=== PATIENT | female | born 1985 | race Caucasian/White ===

== ENCOUNTER 2016-09-16 13:43 | Emergency (ER) | payer BC | END 2016-09-16 16:58 | disposition left against medical advice (07) | LOC: UCCORT 13:43 | DX: Z53.21 Procedure and treatment not carried out due to patient leaving prior to being seen by health care provider (principal) ==

== ENCOUNTER 2016-09-16 16:40 | Emergency (ER) | payer BC ==
[2016-09-16 16:57] VITALS: BP 116/81
--- NOTE | 2016-09-16 17:25 | UC ---
Throat Pain/Nasal Bj HPI - HPI Summary HPI Summary: complaint of nasal congestion and cough that started 2.5 weeks ago for the past week increasing pain behind her eyes constant headaches today pressure in her forehead ears feel full cough with purulent sputum denies fever and chills taking nasonex using albuterol 1-2x week - History of Current Complaint Chief Complaint: UCRespiratory Stated Complaint: DIZZY,SINUS PAIN Time Seen by Provider: 09/16/16 17:14 Hx Obtained From: Patient Hx Last Menstrual Period: 1 WEEK AGO - Allergies/Home Medications Allergies/Adverse Reactions: Allergies Allergy/AdvReac Type Severity Reaction Status Date / Time Amoxicillin Allergy Severe Anaphylatic Verified 09/16/16 16:57 Shock Ipratropium [From Combivent] Allergy Severe Difficulty Verified 09/16/16 16:57 Breathing/Wheezing Lecithin [From Combivent] Allergy Severe Difficulty Verified 09/16/16 16:57 Breathing/Wheezing Lorazepam [From Ativan] Allergy Severe Agitation Verified 09/16/16 16:57 Vancomycin Allergy Severe Anaphylatic Verified 09/16/16 16:57 Shock Ondansetron [From Zofran] Allergy Intermediate Blurred Verified 09/16/16 16:57 Vision Cromolyn Allergy Anaphylatic Verified 09/16/16 16:57 Shock Home Medications: Home Medications Acetaminophen 500 mg PO PRN 09/16/16 [History] Ascorbic Acid TAB* [Vitamin C TAB*] 1,000 mg PO DAILY 09/16/16 [History Confirmed 09/16/16] Multiple Vitamins W/ Minerals [Multivitamin Adults] 1 tab PO 09/16/16 [History] Vitamin A [Vitamin A 7500 Unit Fish] 09/16/16 [History] PMH/Surg Hx/FS Hx/Imm Hx Previously Healthy: Yes Endocrine History Of: Denies: Diabetes, Thyroid Disease, Hyperthyroidism, Hypothyroidism, Dyslipidemia Cardiovascular History Of: Denies: Cardiac Disorders, Hypertension, Pacemaker/ICD, Myocardial Infarction , Congestive Heart Failure, Atrial Fibrillation, Deep Vein Thrombosis, Bleeding Disorders Respiratory History Of: Reports: Asthma Denies: COPD, Bronchitis, Pneumonia, Pulmonary Embolism GI/ History Of: Reports: Gastroesophageal Reflux Denies: Ulcer, Gastrointestinal Bleed, Gall Bladder Disease, Kidney Stones, Diverticulitis, Renal Disease, Urosepsis Neurological History Of: Reports: Migraine Denies: TIA, CVA, Dementia, Seizures Psychological History Of: Denies: Anxiety, Depression, Bipolar Disorder, Schizophrenia - "optical and regular kind.", Post Traumatic Stress Disorder Cancer History Of: Denies: Lung Cancer, Colorectal Cancer, Breast Cancer, Prostate Cancer, Cervical Cancer Other History Of: Negative For: HIV, Hepatitis B, Hepatitis C, Anticoagulant Therapy - Surgical History Surgical History: Yes Surgery Procedure, Year, and Place: BACK BIOPSY (SCHAEFFER'S SARCOMA), BONE MARROW CAP BILAT HIPS, LORRI CATH placement and removal; colonoscopy - Family History Known Family History: Positive: None, Cardiac Disease Negative: Hypertension, Diabetes - Social History Alcohol Use: Occasionally Substance Use Type: None Smoking Status (MU): Never Smoked Tobacco Have You Smoked in the Last Year: No - Immunization History Most Recent Influenza Vaccination: 05/19/2014 Most Recent Tetanus Shot: UNSURE Review of Systems Constitutional: Negative Skin: Negative Eyes: Negative ENT: Nasal Discharge Respiratory: Cough Cardiovascular: Negative Gastrointestinal: Negative Genitourinary: Negative Motor: Negative Neurovascular: Negative Musculoskeletal: Negative Neurological: Negative Psychological: Negative All Other Systems Reviewed And Are Negative: Yes Physical Exam Triage Information Reviewed: Yes Appearance: No Pain Distress, Well-Nourished, Obese Vital Signs: Initial Vital Signs Temp 99.1 F 09/16/16 16:53 Pulse 108 09/16/16 16:53 Resp 16 09/16/16 16:53 BP 116/81 09/16/16 16:53 Pulse Ox 100 09/16/16 16:53 Vital Signs Reviewed: Yes Eyes: Positive: Conjunctiva Clear ENT: Positive: Pharyngeal erythema, Nasal congestion, Nasal drainage, TM bulging , Other: - frontal and sinus tenderness. Negative: TM red Neck: Positive: No Lymphadenopathy Respiratory: Positive: Lungs clear, Normal breath sounds, No respiratory distress Cardiovascular: Positive: No Murmur, Pulses Normal, Tachycardia Abdomen Description: Positive: Nontender, Soft Bowel Sounds: Positive: Present Musculoskeletal: Positive: No Edema Neurological: Positive: Alert Psychological Exam: Normal Skin Exam: Normal Throat Pain/Nasal Course/Dx - Course Course Of Treatment: exam completed. refuses doxycycline and requesting clindanycin- will not rx for clindamyucin d/t recent use in the last 3 months. will rx levaquin discussed black box warning with pt - Differential Dx/Diagnosis Differential Diagnosis/HQI/PQRI: Sinusitis, URI Provider Diagnoses: sinusitis Discharge - Discharge Plan Condition: Stable Disposition: HOME Prescriptions: Levofloxacin TAB* [Levaquin TAB*] 750 mg PO DAILY #5 tab Patient Education Materials: Sinusitis (ED) Forms: *Work Release Referrals: Layton Colbert MD [Primary Care Provider] - Additional Instructions: Start antibiotic as directed Increase fluids and rest Take acetaminophen or ibuprofen for fever or pain Please review your discharge instructions. If your symptoms do not improve please call your primary care provider or return to urgent care
== END 2016-09-16 18:12 | disposition home or self-care (01) ==
LOC: UCEAST 16:40
DX: J32.9 Chronic sinusitis, unspecified (principal); Z88.1 Allergy status to other antibiotic agents; Z88.0 Allergy status to penicillin; Z88.8 Allergy status to other drugs, medicaments and biological substances
CPT/HCPCS: 99212; G0463

== ENCOUNTER 2016-09-19 09:09 | Emergency (ER) | payer BC, OTHER ==
[2016-09-19] MEDS ORDERED: Cyclobenzaprine TAB* 10 MG PO ONE (10:00)
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
[2016-09-19 12:33] VITALS: BP 122/79
== END 2016-09-19 12:30 | disposition home or self-care (01) ==
LOC: ED 09:09
DX: M54.2 Cervicalgia (principal); M25.512 Pain in left shoulder; M54.6 Pain in thoracic spine; M25.562 Pain in left knee; V48.5XXA Car driver injured in noncollision transport accident in traffic accident, initial encounter; Y92.410 Unspecified street and highway as the place of occurrence of the external cause; Z88.0 Allergy status to penicillin
CPT/HCPCS: 72040; 72070; 99282; A9270-GY

== ENCOUNTER 2016-10-13 09:23 | Emergency (ER) | payer BC, OTHER ==
[2016-10-13 10:00] VITALS: BP 111/76
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
== END 2016-10-13 10:56 | disposition home or self-care (01) ==
LOC: UCEAST 09:23
DX: J20.9 Acute bronchitis, unspecified (principal); Z88.1 Allergy status to other antibiotic agents; Z88.8 Allergy status to other drugs, medicaments and biological substances
CPT/HCPCS: 99212; G0463

== ENCOUNTER 2016-12-01 07:58 | Emergency (ER) | payer BC ==
[2016-12-01 08:15] VITALS: BP 138/98
--- NOTE | 2016-12-01 09:04 | RAD ---
Indication: LEFT knee and lower leg pain post recent falls. Pain at the anterior proximal tibia and fibula and lateral patellar region. Pain with weightbearing. Comparison: September 19, 2016 radiographs. Technique: AP and lateral views of the tibia and fibula. AP, tunnel, lateral, and sunrise views of the knee. Report: Negative for fracture or malalignment at the knee or lower leg. Preserved knee joint spaces. Negative for knee joint effusion. Nonspecific soft tissue swelling at the distal lower leg and ankle. No suspicious osseous lesions to raise concern for bone metastasis. IMPRESSION: 1. Negative for fracture. 2. Negative for knee joint effusion. 3. Nonspecific distal lower leg and ankle soft tissue swelling for which clinical correlation is suggested. 4. No suspicious osseous lesions to raise concern for bone metastasis.
--- NOTE | 2016-12-01 09:51 | UC ---
Fredy Mccormick Billy, scribed for Chon Dotson MD on 12/01/16 at 0910 . Lower Extremity/Ankle HPI - HPI Summary HPI Summary: In Room Note: Patient is a 31 year-old female coming to [facility] [place] for evaluation of pain and swelling to the left knee. She reports an ache that is worse with prolonged periods of time standing. She has had numerous falls in the last three months, with the most recent being 5 days ago, when she fell onto the asphalt on both knees. She denies any pain in the ankle or foot. 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 She also has had sinus congestion, for which her PCP has prescribed her clindamycin. MD Note: Vitals stable. BP 138/98. Pulse O2 100% on room air. Nurse's Note: pt slipped on ice about a month ago. pt fell on concretea while later, fell again, chased after her dog and fell. pt was kneeling 2 days ago and and had a very sharp pain. All of these injuries have been to lt leg. pt states that her lt foot does not feel right and is tingling. pt has a hx of CA and and is concerned that the CA is back.l pt is very upset and crying. - History of Current Complaint Chief Complaint: UCLowerExtremity Stated Complaint: FELL-LEG INJURY Time Seen by Provider: 12/01/16 08:21 Hx Obtained From: Patient Hx Last Menstrual Period: 11/30/16 Onset/Duration: Sudden Onset, Lasting Days, Still Present Severity Initially: Moderate Severity Currently: Moderate Pain Intensity: 5 Pain Scale Used: 0-10 Numeric Aggravating Factor(s): Standing Alleviating Factor(s): Rest Able to Bear Weight: Yes - Allergies/Home Medications Allergies/Adverse Reactions: Allergies Allergy/AdvReac Type Severity Reaction Status Date / Time Amoxicillin Allergy Severe Anaphylatic Verified 09/16/16 16:57 Shock Ipratropium [From Combivent] Allergy Severe Difficulty Verified 09/19/16 09:26 Breathing/Wheezing Lecithin [From Combivent] Allergy Severe Difficulty Verified 09/19/16 09:26 Breathing/Wheezing Lorazepam [From Ativan] Allergy Severe Agitation Verified 09/19/16 09:26 Vancomycin Allergy Severe Anaphylatic Verified 09/19/16 09:26 Shock Ondansetron [From Zofran] Allergy Intermediate Blurred Verified 09/16/16 16:57 Vision Cinnamon Allergy Unknown Verified 09/19/16 09:27 Reaction Details Cromolyn Allergy Anaphylatic Verified 09/19/16 09:26 Shock PMH/Surg Hx/FS Hx/Imm Hx Endocrine History Of: Denies: Diabetes, Thyroid Disease, Hyperthyroidism, Hypothyroidism, Dyslipidemia Cardiovascular History Of: Denies: Cardiac Disorders, Hypertension, Pacemaker/ICD, Myocardial Infarction , Congestive Heart Failure, Atrial Fibrillation, Deep Vein Thrombosis, Bleeding Disorders Respiratory History Of: Reports: Asthma Denies: COPD, Bronchitis, Pneumonia, Pulmonary Embolism GI/ History Of: Reports: Gastroesophageal Reflux Denies: Ulcer, Gastrointestinal Bleed, Gall Bladder Disease, Kidney Stones, Diverticulitis, Renal Disease, Urosepsis Neurological History Of: Reports: Migraine Denies: TIA, CVA, Dementia, Seizures Psychological History Of: Denies: Anxiety, Depression, Bipolar Disorder, Schizophrenia - "optical and regular kind.", Post Traumatic Stress Disorder Cancer History Of: Denies: Lung Cancer, Colorectal Cancer, Breast Cancer, Prostate Cancer, Cervical Cancer Other History Of: Negative For: HIV, Hepatitis B, Hepatitis C, Anticoagulant Therapy - Surgical History Surgical History: Yes Surgery Procedure, Year, and Place: BACK BIOPSY (SCHAEFFER'S SARCOMA), BONE MARROW CAP BILAT HIPS, LORRI CATH placement and removal; colonoscopy - Family History Known Family History: Positive: Cardiac Disease, Other - CA. CVA. Negative: Hypertension, Diabetes - Social History Alcohol Use: Occasionally Substance Use Type: None Smoking Status (MU): Never Smoked Tobacco Have You Smoked in the Last Year: No - Immunization History Most Recent Influenza Vaccination: 05/19/2014 Most Recent Tetanus Shot: UNSURE Review of Systems Constitutional: Negative Skin: Negative Eyes: Negative ENT: Other - SINUS CONGESTION FOR WHICH SHE IS CURRENTLY TAKING CLINDAMYCIN. Respiratory: Negative Cardiovascular: Negative Gastrointestinal: Negative Genitourinary: Negative Motor: Negative Neurovascular: Negative Musculoskeletal: Arthralgia, Edema Neurological: Negative Psychological: Negative All Other Systems Reviewed And Are Negative: Yes Physical Exam Triage Information Reviewed: Yes Appearance: Well-Appearing, No Pain Distress, Well-Nourished Vital Signs: Initial Vital Signs Temp 99.0 F 12/01/16 08:08 Pulse 118 12/01/16 08:08 Resp 22 12/01/16 08:08 BP 138/98 12/01/16 08:08 Pulse Ox 100 12/01/16 08:08 Vital Signs Reviewed: Yes Eyes: Positive: Conjunctiva Clear ENT: Positive: Hearing grossly normal, Pharynx normal, TMs normal, Other: - LEFT MAXILLARY SINUS DISCOMFORT.. Negative: Muffled/hoarse voice Neck: Positive: Supple, No Lymphadenopathy Respiratory: Positive: Chest non-tender, Lungs clear, Normal breath sounds, No respiratory distress Cardiovascular: Positive: RRR, No Murmur Abdomen Description: Positive: Nontender, No Organomegaly, Soft Bowel Sounds: Positive: Present Musculoskeletal Exam: Other - MILD SWELLING ON THE LATERAL ASPECT DISTAL TO THE PATELLA ON THE LEFT KNEE. THERE ARE NO EVIDENT ABRASION, DOMINGUEZ'S CYSTS, OR SWELLING POSTERIORLY. NEGATIVE ANTERIOR DRAWER SIGN. NEGATIVE MEDIAL OR LATERAL INSTABILITY. THERE IS MILD PAIN OVER THE JOINT LINE MEDIAL AND LATERALLY. THERE IS TENDERNESS OVER THE AREA OF THE INSERTION OF THE QUADRICEPS TENDON. Musculoskeletal: Positive: Strength Intact Neurological: Positive: Alert Psychological: Positive: Age Appropriate Behavior Skin: Negative: rashes Diagnostics - Radiology Lower Leg Xray Xray Interpretation: No Acute Changes Radiology Interpretation Completed By: Radiologist Knee Xray Xray Interpretation: No Acute Changes Radiology Interpretation Completed By: Radiologist Lower Extremity Course/Dx - Course Course Of Treatment: Medications have been included in the original chart and reviewed. Patient is Urgent/Emergent. BP elevated due to current condition w/o HTN in PMH. This is a 31 year-old female coming to the [facility] [place] for evaluation of LLE pain and swelling. She specifically had some anxiety and concerns about her previous cancer diagnosis. The x-ray imaging of her lower extremity was negative for any acute findings. I discussed the patient's condition and her anxiety about her previous cancer diagnosis was now relieved. - Differential Dx/Diagnosis Differential Diagnosis/HQI/PQRI: Other - FRACTURE vs SPRAIN vs CONTUSION Provider Diagnoses: Contusion of the left anterior tibia. Discharge - Discharge Plan Condition: Stable Disposition: HOME Patient Education Materials: Contusion in Adults (ED), Meniscus Tear (ED) Forms: *Work Release Referrals: Layton Colbert MD [Primary Care Provider] - Additional Instructions: Thank you for helping us improve patient care by filling out the [employer] Survey. WE DISCUSSED: Contusion of your left lower leg You have bruised the front part of your lower leg near your kneecap. You are tender over the joint line. I have given you information about a meniscus tear. I don't think you have this but you should follow up for continued pain in 2 weeks. Use lloyd wrap; warm moist heat in the morning; ice after work or during the day for pain. Call with any questions or concerns. The documentation as recorded by the Fredy davis Billy accurately reflects the service I personally performed and the decisions made by me, Chon Dotson MD.
== END 2016-12-01 10:03 | disposition home or self-care (01) ==
LOC: UCEAST 07:58
DX: S80.12XA Contusion of left lower leg, initial encounter (principal); W19.XXXA Unspecified fall, initial encounter; Z91.81 History of falling; Y93.9 Activity, unspecified; Y92.9 Unspecified place or not applicable; M25.562 Pain in left knee; J45.909 Unspecified asthma, uncomplicated; K21.9 Gastro-esophageal reflux disease without esophagitis; G43.909 Migraine, unspecified, not intractable, without status migrainosus; Z88.1 Allergy status to other antibiotic agents
CPT/HCPCS: 99211; G0463

== ENCOUNTER 2016-12-19 12:40 | Emergency (ER) | payer BC ==
[2016-12-19 13:14] VITALS: BP 119/72
--- NOTE | 2016-12-19 16:32 | UC ---
Throat Pain/Nasal Bj HPI - HPI Summary HPI Summary: PATIENT PRESENTS TO WITH CC OF SINUS PRESSURE, PAIN AND FULLNESS OVER MAXILLARY AND FRONTAL SINUS FOR 1 WEEK WHICH HAS BEEN PROGRESSIVELY GOTTEN WORSE. SHE STATES SHE GETS SINUS INFECTIONS FREQUENTLY AND THIS FEELS SIMILAR. DENIES EAR PAIN, BUT ENDORSES "POPPING" SENSATION OF THE EARS BILATERALLY. DENIES THROAT OR EYE DISCOMFORT. SHE TAKES AN ANTIHISTAMINE DAILY. SHE HAS BEEN SEEN BY DR. OLIVAREZ, BUT IS SEEKING A SECOND OPINION NEXT WEEK FOR RECURRENT SINUS INFECTIONS. SHE DENIES NECK PAIN. ENDORSES POST NASAL DRIP AND SLIGHT COUGH AND FATIGUE. SHE IS WORKING MORE THAN USUAL WHICH NORMALLY WILL CAUSE HER TO GET THESE INFECTIONS. SHE TAKES VITAMIN C FOR PREVENTATIVE MEASURES. - History of Current Complaint Chief Complaint: UCRespiratory Stated Complaint: SINUS COMPLAINT Time Seen by Provider: 12/19/16 13:10 Hx Obtained From: Patient Hx Last Menstrual Period: 2 weeks ago ?: No Onset/Duration: Gradual Onset Severity: Moderate Pain Intensity: 4 Pain Scale Used: 0-10 Numeric Associated Signs & Symptoms: Positive: Sinus Discomfort, Nasal Discharge - Epiglottits Risk Factors Epiglottis Risk Factors: Negative - Allergies/Home Medications Allergies/Adverse Reactions: Allergies Allergy/AdvReac Type Severity Reaction Status Date / Time Amoxicillin Allergy Severe Anaphylatic Verified 09/16/16 16:57 Shock Ipratropium [From Combivent] Allergy Severe Difficulty Verified 09/19/16 09:26 Breathing/Wheezing Lecithin [From Combivent] Allergy Severe Difficulty Verified 09/19/16 09:26 Breathing/Wheezing Lorazepam [From Ativan] Allergy Severe Agitation Verified 09/19/16 09:26 Vancomycin Allergy Severe Anaphylatic Verified 09/19/16 09:26 Shock Ondansetron [From Zofran] Allergy Intermediate Blurred Verified 09/16/16 16:57 Vision Cinnamon Allergy Unknown Verified 09/19/16 09:27 Reaction Details Cromolyn Allergy Anaphylatic Verified 09/19/16 09:26 Shock PMH/Surg Hx/FS Hx/Imm Hx Previously Healthy: Yes Endocrine History Of: Denies: Diabetes, Thyroid Disease, Hyperthyroidism, Hypothyroidism, Dyslipidemia Cardiovascular History Of: Denies: Cardiac Disorders, Hypertension, Pacemaker/ICD, Myocardial Infarction , Congestive Heart Failure, Atrial Fibrillation, Deep Vein Thrombosis, Bleeding Disorders Respiratory History Of: Reports: Asthma Denies: COPD, Bronchitis, Pneumonia, Pulmonary Embolism GI/ History Of: Reports: Gastroesophageal Reflux Denies: Ulcer, Gastrointestinal Bleed, Gall Bladder Disease, Kidney Stones, Diverticulitis, Renal Disease, Urosepsis Neurological History Of: Reports: Migraine Denies: TIA, CVA, Dementia, Seizures Psychological History Of: Denies: Anxiety, Depression, Bipolar Disorder, Schizophrenia - "optical and regular kind.", Post Traumatic Stress Disorder Cancer History Of: Denies: Lung Cancer, Colorectal Cancer, Breast Cancer, Prostate Cancer, Cervical Cancer Other History Of: Negative For: HIV, Hepatitis B, Hepatitis C, Anticoagulant Therapy - Surgical History Surgical History: Yes Surgery Procedure, Year, and Place: BACK BIOPSY (SCHAEFFER'S SARCOMA), BONE MARROW CAP BILAT HIPS, LORRI CATH placement and removal; colonoscopy - Family History Known Family History: Positive: None, Cardiac Disease, Other - CA. CVA. Negative: Hypertension, Diabetes - Social History Occupation: Employed Full-time Lives: Alone Alcohol Use: Occasionally Substance Use Type: None Smoking Status (MU): Never Smoked Tobacco Have You Smoked in the Last Year: No - Immunization History Most Recent Influenza Vaccination: 05/19/2014 Most Recent Tetanus Shot: UNSURE Review of Systems Constitutional: Fever - LOW GRADE PER PATIENT Eyes: Negative ENT: Nasal Discharge, Other - NASAL PRESSURE AND PAIN OVER MAXILLARY AND FRONTAL SINUS Genitourinary: Negative Motor: Negative Neurovascular: Negative Neurological: Negative Psychological: Negative All Other Systems Reviewed And Are Negative: Yes Physical Exam Triage Information Reviewed: Yes Appearance: Well-Appearing, Well-Nourished Vital Signs: Initial Vital Signs Temp 97.4 F 12/19/16 13:10 Pulse 88 12/19/16 13:10 Resp 18 12/19/16 13:10 BP 119/72 12/19/16 13:10 Pulse Ox 99 12/19/16 13:10 Vital Signs Reviewed: Yes Eye Exam: Normal Eyes: Positive: Conjunctiva Clear ENT: Positive: Nasal congestion, Nasal drainage Dental Exam: Normal Neck exam: Normal Neck: Positive: Supple, No Lymphadenopathy Respiratory Exam: Normal Respiratory: Positive: Chest non-tender Cardiovascular Exam: Normal Cardiovascular: Positive: RRR Musculoskeletal Exam: Normal Musculoskeletal: Positive: Strength Intact Neurological Exam: Normal Neurological: Positive: Alert Psychological: Positive: Normal Response To Family, Age Appropriate Behavior Skin Exam: Normal Throat Pain/Nasal Course/Dx - Course Course Of Treatment: PATIENT EDUCATED ON ANTIBIOTIC USE AND OVERUSE. SHE IS ENCOURAGED TO SEEK A SECOND OPINION FOR ENT OR RETURN TO DR. OLIVAREZ FOR FURTHER EVALUATION. SHE IS PRESCRIBED CIPRO STATING ONLY THAT AND A FEW OTHER MEDICATIONS WORK FOR HER AND ALSO STATES 10 DAYS IS MINIMUM FOR EFFECTIVENESS OR SHE WILL NEED TO RETURN. ENCOURAGED AUGMENTIN BUT PATIENT IS ALLERGIC. LAST 2 MEDICATIONS WERE CLINDAMYCIN, SO SHE WOULD LIKE TO HAVE SOMETHING DIFFERENT. SHE IS ENCOURAGED TO USE SALINE SPRAYS, ALLERGY MEDICATIONS, TAKE A PROBIOTIC ON OPPOSITE SCHEDULE OF ANTIBIOTIC AND FOLLOW UP WITH ENT. - Differential Dx/Diagnosis Differential Diagnosis/HQI/PQRI: Sinusitis, URI, Other - SINUS INFLAMMATION, ACUTE RHINOSINUSITIS Provider Diagnoses: SINUSITIS Discharge - Discharge Plan Condition: Stable Disposition: HOME Prescriptions: Ciprofloxacin TAB* [Cipro 500 MG TAB*] 500 mg PO DAILY #20 tab Patient Education Materials: Sinusitis (ED) Forms: *Work Release Referrals: Layton Colbert MD [Primary Care Provider] - Additional Instructions: Follow up with ENT Take a probiotic on opposite schedule as antibiotic. Warm compresses twice daily to the sinus area. Continue with nasal sprays and allergy medication.
== END 2016-12-19 13:54 | disposition home or self-care (01) ==
LOC: UCEAST 12:40
DX: J32.9 Chronic sinusitis, unspecified (principal); J45.909 Unspecified asthma, uncomplicated; K21.9 Gastro-esophageal reflux disease without esophagitis; G43.909 Migraine, unspecified, not intractable, without status migrainosus; Z88.4 Allergy status to anesthetic agent; Z88.0 Allergy status to penicillin; Z88.8 Allergy status to other drugs, medicaments and biological substances
CPT/HCPCS: 99212; G0463

== ENCOUNTER 2017-01-28 09:27 | Emergency (ER) | payer BC ==
[2017-01-28 10:01] VITALS: BP 105/62
--- NOTE | 2017-01-28 10:47 | UC ---
Throat Pain/Nasal Bj HPI - HPI Summary HPI Summary: Pt presents through amb triage with report of right sided sinus congestion, pressure, and pain. Pt states has fatigue. No fever, chills, rash. No cp, sob, abd pain. No nausea, vomiting. Pt states has been evaluated by ENT. PT states she is scheduled to see an cloth tester quality on Monday. PT states take Nasonex daily as well as Zytec. Pt states took Afrin x 3 days with little improvement. Pt states last abx 2 months ago. Pt states right side fullness, pressure, ear pain and dental fullness. - History of Current Complaint Chief Complaint: UCRespiratory Stated Complaint: SINUS COMPLAINT Time Seen by Provider: 01/28/17 10:00 Hx Obtained From: Patient Hx Last Menstrual Period: 01/25/17 Onset/Duration: Gradual Onset Severity: Moderate - Allergies/Home Medications Allergies/Adverse Reactions: Allergies Allergy/AdvReac Type Severity Reaction Status Date / Time Amoxicillin Allergy Severe Anaphylatic Verified 09/16/16 16:57 Shock Ipratropium [From Combivent] Allergy Severe Difficulty Verified 09/19/16 09:26 Breathing/Wheezing Lecithin [From Combivent] Allergy Severe Difficulty Verified 09/19/16 09:26 Breathing/Wheezing Lorazepam [From Ativan] Allergy Severe Agitation Verified 09/19/16 09:26 Vancomycin Allergy Severe Anaphylatic Verified 09/19/16 09:26 Shock Ondansetron [From Zofran] Allergy Intermediate Blurred Verified 09/16/16 16:57 Vision Cinnamon Allergy Unknown Verified 09/19/16 09:27 Reaction Details Cromolyn Allergy Anaphylatic Verified 09/19/16 09:26 Shock PMH/Surg Hx/FS Hx/Imm Hx Previously Healthy: Yes Other Cancer History: Schaeffer Sarcoma Other History Of: Negative For: HIV, Hepatitis B, Hepatitis C, Anticoagulant Therapy - Surgical History Surgical History: Yes Surgery Procedure, Year, and Place: BACK BIOPSY (SCHAEFFER'S SARCOMA), BONE MARROW CAP BILAT HIPS, LORRI CATH placement and removal; colonoscopy - Family History Known Family History: Positive: None, Cardiac Disease, Other - CA. CVA. 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 Alcohol Use: Occasionally Substance Use Type: None Smoking Status (MU): Never Smoked Tobacco Have You Smoked in the Last Year: No - Immunization History Most Recent Influenza Vaccination: 05/19/2014 Most Recent Tetanus Shot: UNSURE Review of Systems Constitutional: Fatigue ENT: Nasal Discharge, Sinus Congestion, Sinus Pain/Tenderness Respiratory: Negative Cardiovascular: Negative Gastrointestinal: Negative Genitourinary: Negative Motor: Negative Neurovascular: Negative Musculoskeletal: Negative Neurological: Negative Psychological: Negative All Other Systems Reviewed And Are Negative: Yes Physical Exam Triage Information Reviewed: Yes Appearance: Well-Appearing, No Pain Distress - tired appearing, Well-Nourished Vital Signs: Initial Vital Signs Temp 97.6 F 01/28/17 09:56 Pulse 85 01/28/17 09:56 Resp 18 01/28/17 09:56 BP 105/62 01/28/17 09:56 Pulse Ox 100 01/28/17 09:56 Vital Signs Reviewed: Yes Eye Exam: Normal Eyes: Positive: Conjunctiva Clear, Conjunctiva Inflamed ENT Exam: Normal ENT: Positive: Normal ENT inspection, Pharynx normal, Nasal congestion - turbinates inflammed and boggy + PND uvula midline No erythema, no exudate, TMs normal Neck exam: Normal Neck: Positive: Supple, Nontender, No Lymphadenopathy Respiratory Exam: Normal Respiratory: Positive: Chest non-tender, Lungs clear, Normal breath sounds, No respiratory distress Cardiovascular Exam: Normal Cardiovascular: Positive: RRR, No Murmur, Pulses Normal Abdominal Exam: Normal Abdomen Description: Positive: Nontender, No Organomegaly, Soft Musculoskeletal Exam: Normal Musculoskeletal: Positive: Strength Intact Neurological Exam: Normal Neurological: Positive: Alert, Muscle Tone Normal Psychological Exam: Normal Skin Exam: Normal Throat Pain/Nasal Course/Dx - Course Course Of Treatment: PT presents with right sided sinus congestion and pressure. Pt with similar sx and recurrent sinus congestion. Will start Bactrim. continues nasonex/zyrtec. f/u Fri as scheduled. work note - Differential Dx/Diagnosis Provider Diagnoses: sinusitis Discharge - Discharge Plan Condition: Stable Disposition: HOME Prescriptions: Sulfamethox/Trimethoprim DS* [Bactrim DS 800/160 TAB*] 1 tab PO BID #14 tab Patient Education Materials: Sinusitis (ED) Forms: *Work Release Referrals: Layton Colbert MD [Primary Care Provider] - Additional Instructions: - Continue to take Zyrtec and Nasonex as previously prescribed - Take Bactrim as prescribed until gone - Stay well hydrated - drink plenty of non-alcoholic, non-caffinated beverages - After you have been on antibiotics for 2 days, change your toothbrush and your pillowcase. These infections are spread by secretions - do NOT share eating or drinking utensils - clean items you share with other people such as cell phones, computer mouse, TV remote, computer tablets, etc - Keep your appointment as scheduled on Monday with your ground equipment mechanic - Contact your doctor or return with questions or concerns
== END 2017-01-28 10:49 | disposition home or self-care (01) ==
LOC: UCEAST 09:27
DX: J32.9 Chronic sinusitis, unspecified (principal); Z88.1 Allergy status to other antibiotic agents; Z88.8 Allergy status to other drugs, medicaments and biological substances
CPT/HCPCS: 99202; G0463

== ENCOUNTER 2017-03-18 13:16 | Emergency (ER) | payer BC ==
[2017-03-18 13:46] VITALS: BP 126/82
--- NOTE | 2017-04-08 11:32 | UC ---
Sanford Mccormick Angela, scribed for Leisa Ruiz DO on 03/18/17 at 1405 . General HPI - HPI Summary HPI Summary: 31 y/o female presents to [facility] c/o sinus pressure, congestion, and nasal discharge for more than 1 week. She admits to R jaw pain, R ear pain and headaches as well. Pt reports she gets recurrent sinus infections. She notes that she has seen an ENT provider and was referred to an mutuel cashier, with no solution to her symptoms. Pt states doing nasal rinses at night with no relief, and getting fluid in her ears. Pt denies fever, nausea, vomiting, urinary symptoms, rashes, chest pain, SOB. She notes her seasonal allergies don't make her sinus infection any worse, and uses Zyrtec with mild relief of allergies. Pt is currently taking probiotics and cranberry supplements. Last time she took antibiotics was 2 months ago and states what works best for her are Levaquin, Cipro, Clindamycin. - History of Current Complaint Chief Complaint: UCGeneralIllness Stated Complaint: SINUS COMPLAINT Time Seen by Provider: 03/18/17 13:46 Hx Obtained From: Patient Hx Last Menstrual Period: February 2017 Onset/Duration: Gradual Onset, Lasting Weeks, Still Present Timing: Constant Onset Severity: Moderate Current Severity: Moderate Pain Intensity: 5 - From a scale of 0-10, throbbing/ache Associated Signs & Symptoms: Positive: Headache, Other - POSITIVE: R jaw pain, R ear pain, nasal discharge.. Negative: Abdominal Pain, Cough, Fever, Nausea, SOB, Vomiting - Allergy/Home Medications Allergies/Adverse Reactions: Allergies Allergy/AdvReac Type Severity Reaction Status Date / Time Amoxicillin Allergy Severe Anaphylatic Verified 09/16/16 16:57 Shock Ipratropium [From Combivent] Allergy Severe Difficulty Verified 09/19/16 09:26 Breathing/Wheezing Lecithin [From Combivent] Allergy Severe Difficulty Verified 09/19/16 09:26 Breathing/Wheezing Lorazepam [From Ativan] Allergy Severe Agitation Verified 09/19/16 09:26 Vancomycin Allergy Severe Anaphylatic Verified 09/19/16 09:26 Shock Ondansetron [From Zofran] Allergy Intermediate Blurred Verified 09/16/16 16:57 Vision Cinnamon Allergy Unknown Verified 09/19/16 09:27 Reaction Details Cromolyn Allergy Anaphylatic Verified 02/13/17 09:26 Shock PMH/Surg Hx/FS Hx/Imm Hx - Additional Past Medical History Additional PMH: h/o recurrent sinusitis GI/ History: Other - Gastroenteritis, inflammatory colitis, recurrent UTIs Other GI/ History: Gastroenteritis, inflammatory colitis, recurrent UTIs Other History Of: Negative For: HIV, Hepatitis B, Hepatitis C, Anticoagulant Therapy - Surgical History Surgical History: Yes Surgery Procedure, Year, and Place: BACK BIOPSY (SCHAEFFER'S SARCOMA), BONE MARROW CAP BILAT HIPS, LORRI CATH placement and removal; colonoscopy - Family History Known Family History: Positive: Cardiac Disease - Father, Other - [place]. CVA. Negative: Hypertension, Diabetes - Social History Alcohol Use: Occasionally Substance Use Type: None Smoking Status (MU): Never Smoked Tobacco Have You Smoked in the Last Year: No - Immunization History Most Recent Influenza Vaccination: 05/19/2014 Most Recent Tetanus Shot: UNSURE Review of Systems Constitutional: Negative Skin: Negative Eyes: Negative ENT: Nasal Discharge, Sinus Congestion, Sinus Pain/Tenderness, Other - R jaw pain, R ear pain. Respiratory: Negative Cardiovascular: Negative Gastrointestinal: Negative Genitourinary: Negative Neurological: Headache All Other Systems Reviewed And Are Negative: Yes - Comments Additional Review of Systems Comments: NEGATIVE: fever, nausea, vomiting, rashes, urinary symptoms, chest pain, SOB. Physical Exam Triage Information Reviewed: Yes Appearance: Well-Appearing, No Pain Distress, Well-Nourished Vital Signs: Initial Vital Signs Temp 98.7 F 03/18/17 13:41 Pulse 97 03/18/17 13:41 Resp 18 03/18/17 13:41 BP 126/82 03/18/17 13:41 Pulse Ox 97 03/18/17 13:41 Vital Signs Reviewed: Yes Eyes: Positive: Conjunctiva Clear. Negative: Discharge ENT: Positive: Hearing grossly normal, Pharynx normal, TMs normal, Other: - Exquisite maxillary tenderness rt.. Negative: Tonsillar swelling, Tonsillar exudate, Trismus, Muffled/hoarse voice Neck exam: Normal Neck: Positive: Supple Respiratory: Positive: Lungs clear, Normal breath sounds, No respiratory distress, No accessory muscle use Cardiovascular: Positive: RRR, No Murmur Musculoskeletal Exam: Normal Neurological: Positive: Alert, Muscle Tone Normal Psychological Exam: Normal Psychological: Positive: Age Appropriate Behavior Skin Exam: Normal, Other - Warm, Dry, Normal color Course/Dx - Course Course Of Treatment: Htn noted. Elevated bp likely d/t pt current condition - Differential Dx - Multi-Symptom Provider Diagnoses: Sinusitis, elevated bp without dx of htn Discharge - Discharge Plan Condition: Stable Disposition: HOME Prescriptions: Cefdinir [Cefdinir 300 MG CAP] 300 mg PO BID #20 cap Patient Education Materials: Sinusitis (ED) Referrals: Layton Colbert MD [Primary Care Provider] - If Needed () Additional Instructions: TRY USING THE NETTI POT IN THE MORNINGS DISCUSSED. YOU MUST ALWAYS USE CLEAN WATER. REMEMBER, POSTURE IS AN IMPORTANT FACTOR IN SINUS DRAINAGE. MOVE YOUR NECK, BREATHE. CEPHALOSPORINS: An antibiotic of the cephalosporin class has been prescribed. This type of antibiotic covers a wide variety of infections, including those of the skin, lungs, middle ear, and urinary tract. This antibiotic is somewhat similar to the penicillin family. In rare cases , a person who is allergic to penicillin will also be allergic to this medication. If you have had a severe allergic reaction to penicillin, and have not taken this antibiotic since that time, notify your doctor. Antibiotics which cover many germs ("broad spectrum" antibiotics) are more likely to cause diarrhea or "yeast" infections. Women prone to vaginal yeast problems may suffer an attack after taking this antibiotic. In infants, oral thrush (white spots "stuck" on the cheek) or yeast diaper rash may result. See your doctor if these problems occur. Call the doctor at once if you develop hives, itching, shortness of breath , or lightheadedness. DISCUSSED, BECAUSE YOU HAVE A AMOXICILLIN ALLERGY, THERE MAY BE SOME RISK OF ALLERGIC REACTION TO CEFDINIR. IF YOU DEVELOP ANY RASH/HIVES, SWELLING OF YOUR LIPS/TONGUE/THROAT, SHORTNESS OF BREATH/WHEEZING, CHEST PAIN, NAUSEA/VOMITING/ DIARHHEA/ABDOMINAL PAIN, DIZZINESS/LIGHTHEADEDNESS, YOU SHOULD RETURN HERE OR GO TO THE ED IMMEDIATELY. ANYTIME YOU TAKE AN ANTIBIOTIC, IT IS IMPORTANT TO REPLENISH THE BODY'S SUPPLY OF "GOOD BACTERIA." YOU CAN GET GOOD BACTERIA FROM HIGH QUALITY CULTURED FOODS SUCH LOCAL YOGURT, SOUR KRAUT, MARY COURT, NATURALLY FERMENTED PICKLES AND PROBIOTIC DRINKS. YOU CAN ALSO GET GOOD BACTERIA FROM A PROBIOTIC SUPPLEMENT. YOU WOULD LIKELY BENEFIT FROM OSTEOPATHIC TREATMENT. WE RECOMMEND THAT YOU FIND AN OSTEOPATHIC PHYSICIAN IN YOUR AREA WHO FOCUSES EXCLUSIVELY ON OSTEOPATHIC MANIPULATIVE MEDICINE WITH EXPERTISE IN MYOFACIAL, LYMPHATIC, VISCERAL AND INTEROSSEOUS WORK The documentation as recorded by the Sanford davis Angela accurately reflects the service I personally performed and the decisions made by me, Leisa Ruiz DO.
== END 2017-03-18 14:45 | disposition home or self-care (01) ==
LOC: UCEAST 13:16
DX: J32.9 Chronic sinusitis, unspecified (principal); R03.0 Elevated blood-pressure reading, without diagnosis of hypertension; R68.84 Jaw pain; H92.01 Otalgia, right ear; Z88.1 Allergy status to other antibiotic agents; Z88.0 Allergy status to penicillin; Z88.8 Allergy status to other drugs, medicaments and biological substances
CPT/HCPCS: 99212; G0463

== ENCOUNTER 2017-05-18 12:36 | Emergency (ER) | payer BC ==
[2017-05-18 13:40] VITALS: BP 132/80
--- NOTE | 2017-05-18 16:01 | UC ---
Throat Pain/Nasal Bj HPI - HPI Summary HPI Summary: TEN DAYS OF SINUS PRESSURE, NASAL DRAINAGE. HISTORY OF CHRONIC SINUS PROBLEMS. - History of Current Complaint Chief Complaint: UCGeneralIllness Stated Complaint: SINUS COMPLAINT Time Seen by Provider: 05/18/17 13:35 Hx Obtained From: Patient Hx Last Menstrual Period: 05/18/17 Onset/Duration: Gradual Onset, Lasting Weeks Severity: Moderate Pain Intensity: 6 Pain Scale Used: 0-10 Numeric Cough: Nonproductive Associated Signs & Symptoms: Positive: Hoarseness, Sinus Discomfort, Nasal Discharge - Epiglottits Risk Factors Epiglottis Risk Factors: Negative - Allergies/Home Medications Allergies/Adverse Reactions: Allergies Allergy/AdvReac Type Severity Reaction Status Date / Time Amoxicillin Allergy Severe Anaphylatic Verified 09/16/16 16:57 Shock Ipratropium [From Combivent] Allergy Severe Difficulty Verified 09/19/16 09:26 Breathing/Wheezing Lecithin [From Combivent] Allergy Severe Difficulty Verified 09/19/16 09:26 Breathing/Wheezing Lorazepam [From Ativan] Allergy Severe Agitation Verified 09/19/16 09:26 Vancomycin Allergy Severe Anaphylatic Verified 09/19/16 09:26 Shock Ondansetron [From Zofran] Allergy Intermediate Blurred Verified 09/16/16 16:57 Vision Cinnamon Allergy Unknown Verified 09/19/16 09:27 Reaction Details Cromolyn Allergy Anaphylatic Verified 09/19/16 09:26 Shock PMH/Surg Hx/FS Hx/Imm Hx Previously Healthy: Yes Other History Of: Negative For: HIV, Hepatitis B, Hepatitis C, Anticoagulant Therapy - Surgical History Surgical History: Yes Surgery Procedure, Year, and Place: BACK BIOPSY (SCHAEFFER'S SARCOMA), BONE MARROW CAP BILAT HIPS, LORRI CATH placement and removal; colonoscopy - Family History Known Family History: Positive: None, Cardiac Disease - Father, Other - [place]. CVA. Negative: Hypertension, Diabetes - Social History Occupation: Employed Full-time Lives: With Family Alcohol Use: Rare Substance Use Type: None Smoking Status (MU): Never Smoked Tobacco Have You Smoked in the Last Year: No - Immunization History Most Recent Influenza Vaccination: 05/19/2014 Most Recent Tetanus Shot: UNSURE Review of Systems Constitutional: Negative Skin: Negative Eyes: Negative ENT: Nasal Discharge, Sinus Congestion, Sinus Pain/Tenderness Respiratory: Negative Cardiovascular: Negative Gastrointestinal: Negative Genitourinary: Negative Motor: Negative Neurovascular: Negative Musculoskeletal: Negative Neurological: Negative Psychological: Negative Is Patient Immunocompromised?: No All Other Systems Reviewed And Are Negative: Yes Physical Exam Triage Information Reviewed: Yes Appearance: No Pain Distress, Well-Nourished, Ill-Appearing - MILDLY Vital Signs: Initial Vital Signs Temp 98.1 F 05/18/17 13:35 Pulse 88 05/18/17 13:35 Resp 16 05/18/17 13:35 BP 132/80 05/18/17 13:35 Pulse Ox 100 05/18/17 13:35 Vital Signs Reviewed: Yes Eye Exam: Normal ENT: Positive: Hearing grossly normal, Nasal congestion, TM bulging, TM dull Dental Exam: Normal Neck exam: Normal Neck: Positive: Supple, Nontender, No Lymphadenopathy Respiratory Exam: Normal Respiratory: Positive: Chest non-tender, Lungs clear, Normal breath sounds, No respiratory distress, No accessory muscle use Cardiovascular Exam: Normal Cardiovascular: Positive: RRR, No Murmur, Pulses Normal, Brisk Capillary Refill Abdominal Exam: Normal Musculoskeletal Exam: Normal Neurological Exam: Normal Psychological Exam: Normal Skin Exam: Normal Throat Pain/Nasal Course/Dx - Differential Dx/Diagnosis Differential Diagnosis/HQI/PQRI: Sinusitis, Tonsillitis, URI Provider Diagnoses: SINUSITIS Discharge - Discharge Plan Condition: Stable Disposition: HOME Prescriptions: DOXYcycline CAP(*) [DOXYcycline 100MG CAP(*)] 100 mg PO BID #20 cap Patient Education Materials: Sinusitis (ED) Forms: *Work Release Referrals: Mp Seymour MD [Medical Doctor] - Layton Colbert MD [Primary Care Provider] -
== END 2017-05-18 14:03 | disposition home or self-care (01) ==
LOC: UCCORT 12:36
DX: J32.9 Chronic sinusitis, unspecified (principal)
CPT/HCPCS: 99212; G0463

== ENCOUNTER 2017-06-25 12:31 | Emergency (ER) | payer BC ==
--- NOTE | 2017-06-25 14:58 | UC ---
Throat Pain/Nasal Bj HPI - HPI Summary HPI Summary: Patient has right sided sinus pressure and swelling, did have a small abcess on the upper right jaw, that was draining a few days ago. no fever, does have an ENT, but cant get in for a few weeks. - History of Current Complaint Stated Complaint: SINUS Time Seen by Provider: 06/25/17 14:39 Hx Obtained From: Patient Hx Last Menstrual Period: 05/18/17 ?: No Onset/Duration: Sudden Onset, Lasting Days Severity: Mild Cough: Nonproductive Associated Signs & Symptoms: Positive: Sinus Discomfort - Allergies/Home Medications Allergies/Adverse Reactions: Allergies Allergy/AdvReac Type Severity Reaction Status Date / Time Amoxicillin Allergy Severe Anaphylatic Verified 06/25/17 14:55 Shock Ipratropium [From Combivent] Allergy Severe Difficulty Verified 06/25/17 14:55 Breathing/Wheezing Lecithin [From Combivent] Allergy Severe Difficulty Verified 06/25/17 14:55 Breathing/Wheezing Lorazepam [From Ativan] Allergy Severe Agitation Verified 06/25/17 14:55 Vancomycin Allergy Severe Anaphylatic Verified 06/25/17 14:55 Shock Ondansetron [From Zofran] Allergy Intermediate Blurred Verified 06/25/17 14:55 Vision Cinnamon Allergy Unknown Verified 06/25/17 14:55 Reaction Details Cromolyn Allergy Anaphylatic Verified 06/25/17 14:55 Shock PMH/Surg Hx/FS Hx/Imm Hx Previously Healthy: Yes Other History Of: Negative For: HIV, Hepatitis B, Hepatitis C, Anticoagulant Therapy - Surgical History Surgical History: Yes Surgery Procedure, Year, and Place: BACK BIOPSY (SCHAEFFER'S SARCOMA), BONE MARROW CAP BILAT HIPS, LORRI CATH placement and removal; colonoscopy - Family History Known Family History: Positive: None, Cardiac Disease - Father, Other - [place]. CVA. Negative: Hypertension, Diabetes - Social History Alcohol Use: Rare Substance Use Type: None Smoking Status (MU): Never Smoked Tobacco Have You Smoked in the Last Year: No - Immunization History Most Recent Influenza Vaccination: 05/19/2014 Most Recent Tetanus Shot: UNSURE Review of Systems Constitutional: Negative Skin: Negative Eyes: Negative ENT: Dental Pain, Sinus Congestion, Sinus Pain/Tenderness Respiratory: Negative, Shortness Of Breath Gastrointestinal: Negative Genitourinary: Negative Motor: Negative Neurovascular: Negative Musculoskeletal: Negative Neurological: Headache Psychological: Negative Is Patient Immunocompromised?: No All Other Systems Reviewed And Are Negative: Yes Physical Exam Triage Information Reviewed: Yes Appearance: Well-Nourished, Ill-Appearing, Pain Distress Vital Signs Reviewed: Yes Eye Exam: Normal ENT: Positive: Pharyngeal erythema, TM bulging - right ear, TM dull, Dental tenderness - right side maxillary, Sinus tenderness Dental Exam: Normal Neck exam: Normal Neck: Positive: Supple, Nontender, Enlarged Nodes @ - submandibular and cervical Respiratory Exam: Normal Respiratory: Positive: Chest non-tender, Lungs clear, Normal breath sounds Cardiovascular Exam: Normal Cardiovascular: Positive: RRR, No Murmur, Pulses Normal Abdominal Exam: Normal Abdomen Description: Positive: Nontender, No Organomegaly, Soft Bowel Sounds: Positive: Present Musculoskeletal Exam: Normal Musculoskeletal: Positive: Strength Intact, ROM Intact, No Edema Neurological Exam: Normal Neurological: Positive: Alert, Muscle Tone Normal Psychological Exam: Normal Skin Exam: Normal Throat Pain/Nasal Course/Dx - Course Course Of Treatment: hx obtained, exam performed ,meds reviewed, treated for sinusitis of the right maxillary sinus - Differential Dx/Diagnosis Differential Diagnosis/HQI/PQRI: Otitis Media, Pharyngitis, Sinusitis, Tonsillitis Provider Diagnoses: right maxillary sinusitis Discharge - Discharge Plan Condition: Stable Disposition: HOME Prescriptions: Clindamycin Cap(NF) [Clindamycin Cap 300 mg Cap(NF)] 300 mg PO TID #30 cap Patient Education Materials: Sinusitis (ED), Warm Compress or Soak (ED) Referrals: Layton Colbert MD [Primary Care Provider] - Additional Instructions: 1. Use the medication as prescribed. 2. Warm compresses and ibuprofen as needed. 3. FOllow up with your ENT in [facility] next week, report to ER if you develop a fever ,or increased facial pain or swelling
[2017-06-25 15:13] VITALS: BP 133/78
== END 2017-06-25 15:20 | disposition home or self-care (01) ==
LOC: UCCORT 12:31
DX: J32.0 Chronic maxillary sinusitis (principal); Z88.1 Allergy status to other antibiotic agents; Z88.8 Allergy status to other drugs, medicaments and biological substances
CPT/HCPCS: 99212; G0463

== ENCOUNTER 2017-08-06 13:27 | Emergency (ER) | payer BC ==
[2017-08-06 16:02] VITALS: BP 128/70
--- NOTE | 2017-08-06 16:26 | ED ---
Throat Pain/Nasal Congestion - HPI Summary HPI Summary: 32 yr old female with the complaint of right and left frontal sinus pressure and right maxillary sinus pressure. Onset 1.5 weeks ago this time. She states she has pressure in the right ear. She has post nasal drip and sinus drainage. She has a history of recurrent sinus infections and is under the care of Dr Bullock at this point. She states the best medicine seems to be clindamycin for her. - History of Current Complaint Chief Complaint: UCGeneralIllness Time Seen by Provider: 08/06/17 16:08 - Allergies/Home Medications Allergies/Adverse Reactions: Allergies Allergy/AdvReac Type Severity Reaction Status Date / Time Amoxicillin Allergy Severe Anaphylatic Verified 08/06/17 16:02 Shock Ipratropium [From Combivent] Allergy Severe Difficulty Verified 08/06/17 16:02 Breathing/Wheezing Lecithin [From Combivent] Allergy Severe Difficulty Verified 08/06/17 16:02 Breathing/Wheezing Lorazepam [From Ativan] Allergy Severe Agitation Verified 08/06/17 16:02 Vancomycin Allergy Severe Anaphylatic Verified 08/06/17 16:02 Shock Ondansetron [From Zofran] Allergy Intermediate Blurred Verified 08/06/17 16:02 Vision Cinnamon Allergy Unknown Verified 08/06/17 16:02 Reaction Details Cromolyn Allergy Anaphylatic Verified 08/06/17 16:02 Shock Home Medications: Home Medications Acetaminophen TAB* [Tylenol TAB*] 975 mg PO Q4H PRN 08/06/17 [History Confirmed 08/06/17] PMH/Surg Hx/FS Hx/Imm Hx Endocrine/Hematology History: Denies: Hx Anticoagulant Therapy, Hx Blood Disorders, Hx Diabetes, Hx Thyroid Disease, Hx Unexplained Bleeding Cardiovascular History: Denies: Hx Congestive Heart Failure, Hx Deep Vein Thrombosis, Hx Hypertension , Hx Myocardial Infarction, Hx Pacemaker/ICD Respiratory History: Reports: Hx Asthma Denies: Hx Chronic Obstructive Pulmonary Disease (COPD), Hx Lung Cancer, Hx Pneumonia, Hx Pulmonary Embolism GI History: Denies: Hx Gall Bladder Disease, Hx Gastrointestinal Bleed, Hx Ulcer, Hx Urosepsis History: Denies: Hx Kidney Stones, Hx Renal Disease Musculoskeletal History: Reports: Other Musculoskeletal History - h/o chemo/ radiation resulting in poor bone quality Sensory History: Reports: Hx Contacts or Glasses Denies: Hx Hearing Aid Opthamlomology History: Reports: Hx Contacts or Glasses Neurological History: Reports: Hx Migraine, Other Neuro Impairments/Disorders - 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, had chemo and radiation Denies: Hx Dementia, Hx Seizures, Hx Transient Ischemic Attacks (TIA) Psychiatric History: Denies: Hx Anxiety, Hx Depression, Hx Panic Disorder, Hx Schizophrenia - "optical and regular kind.", Hx Bipolar Disorder - Cancer History Cancer Type, 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 Hx Chemotherapy: Yes Hx Radiation Therapy: Yes - Surgical History Surgery Procedure, Year, and Place: BACK BIOPSY (SCHAEFFER'S SARCOMA), BONE MARROW CAP BILAT HIPS, LORRI CATH placement and removal; colonoscopy Infectious Disease History: No Infectious Disease History: Reports: Hx Shingles - 2000 Denies: Hx Clostridium Difficile, Hx Hepatitis, Hx Human Immunodeficiency Virus (HIV), Hx of Known/Suspected MRSA, Hx Tuberculosis, Hx Known/Suspected VRE , Hx Known/Suspected VRSA, History Other Infectious Disease, Traveled Outside the [place] in Last 30 Days - Family History Known Family History: Positive: None, Cardiac Disease - Father, Other - [place]. CVA. Negative: Hypertension, Diabetes - Social History Occupation: Employed Full-time Lives: With Family Alcohol Use: Rare Hx Substance Use: No Substance Use Type: Reports: None Hx Tobacco Use: No Smoking Status (MU): Never Smoked Tobacco Have You Smoked in the Last Year: No Review of Systems Constitutional: Negative Positive: Nasal Discharge, Other - sinus pain pressure All Other Systems Reviewed And Are Negative: Yes Physical Exam Triage Information Reviewed: Yes Vital Signs On Initial Exam: Initial Vitals Temp Pulse Resp BP Pulse Ox 98.6 F 104 16 128/70 99 08/06/17 15:57 08/06/17 15:57 08/06/17 15:57 08/06/17 15:57 08/06/17 15:57 Vital Signs Reviewed: Yes Appearance: Positive: Well-Appearing, No Pain Distress Skin: Positive: Warm Head/Face: Positive: Normal Head/Face Inspection Eyes: Positive: EOMI ENT: Positive: Pharynx normal, TMs normal, Sinus tenderness Neck: Positive: Supple, Nontender Respiratory/Lung Sounds: Positive: Clear to Auscultation, Breath Sounds Present Cardiovascular: Positive: RRR. Negative: Murmur Abdomen Description: Positive: Nontender Musculoskeletal: Positive: Strength/ROM Intact Neurological: Positive: Sensory/Motor Intact, Alert, Oriented to Person Place, Time, CN Intact II-III Psychiatric: Positive: Normal - French Coma Scale Best Eye Response: 4 - Spontaneous Best Motor Response: 6 - Obeys Commands Best Verbal Response: 5 - Oriented Diagnostics - Vital Signs Vital Signs Temp Pulse Resp BP Pulse Ox 08/06/17 15:57 98.6 F 104 16 128/70 99 - Laboratory Lab Statement: Any lab studies that have been ordered have been reviewed, and results considered in the medical decision making process. EENT Course/Dx - Course Course Of Treatment: 32 yr old with sinus infection. Rx with clindamycin. Fu with Dr Bullock. - Diagnoses Provider Diagnoses: Sinusitis Discharge - Discharge Plan Condition: Good Disposition: HOME Prescriptions: Clindamycin Cap(NF) [Clindamycin Cap 300 mg Cap(NF)] 300 mg PO Q6H #40 cap Patient Education Materials: Sinusitis (ED) Referrals: Isaiah Bullock MD [Medical Doctor] - No Primary Care Phys,NOPCP [Primary Care Provider] -
== END 2017-08-06 16:26 | disposition home or self-care (01) ==
LOC: UCCORT 13:27
DX: J32.9 Chronic sinusitis, unspecified (principal); Z85.830 Personal history of malignant neoplasm of bone; Z88.8 Allergy status to other drugs, medicaments and biological substances; Z88.1 Allergy status to other antibiotic agents
CPT/HCPCS: 99211; G0463

== ENCOUNTER 2017-09-16 14:57 | Emergency (ER) | payer BC | END 2017-09-16 20:30 | disposition left against medical advice (07) | LOC: UCEAST 14:57 | DX: J02.9 Acute pharyngitis, unspecified (principal); Z53.21 Procedure and treatment not carried out due to patient leaving prior to being seen by health care provider ==

== ENCOUNTER 2017-09-17 08:10 | Emergency (ER) | payer BC ==
[2017-09-17 08:23] VITALS: BP 143/80
--- NOTE | 2017-09-17 09:21 | UC ---
Throat Pain/Nasal Bj HPI - HPI Summary HPI Summary: Sinus pain for over 1 month worse on right also has right ear pain, rx with clindamycin-which usually clears the infection well---doxycycline and Zithromax never help - History of Current Complaint Chief Complaint: UCGeneralIllness Stated Complaint: SINUS COMPLAINT Time Seen by Provider: 09/17/17 09:19 Hx Obtained From: Patient Hx Last Menstrual Period: 2 weeks ago ?: No Onset/Duration: Gradual Onset, Lasting Weeks - 4+, Still Present, Worse Since - past week Severity: Moderate Pain Intensity: 4 Cough: None Associated Signs & Symptoms: Positive: Sinus Discomfort, Nasal Discharge - Allergies/Home Medications Allergies/Adverse Reactions: Allergies Allergy/AdvReac Type Severity Reaction Status Date / Time albuterol [From Combivent] Allergy Severe Difficulty Verified 09/17/17 08:30 Breathing/Wheezing amoxicillin Allergy Severe Anaphylatic Verified 09/17/17 08:30 Shock cromolyn Allergy Severe Anaphylatic Verified 09/17/17 08:30 Shock ipratropium [From Combivent] Allergy Severe Difficulty Verified 09/17/17 08:30 Breathing/Wheezing vancomycin Allergy Severe Anaphylatic Verified 09/17/17 08:30 Shock lorazepam Allergy Intermediate Abdominal Verified 09/17/17 08:30 Pain ondansetron Allergy Intermediate Blurred Verified 09/17/17 08:30 [From Zofran (as Vision hydrochloride)] cinnamon Allergy Unknown Unknown Verified 09/17/17 08:30 Reaction Details PMH/Surg Hx/FS Hx/Imm Hx Previously Healthy: Yes Other History Of: Negative For: HIV, Hepatitis B, Hepatitis C, Anticoagulant Therapy - Surgical History Surgical History: Yes Surgery Procedure, Year, and Place: BACK BIOPSY (SCHAEFFER'S SARCOMA), BONE MARROW CAP BILAT HIPS, LORRI CATH placement and removal; colonoscopy - Family History Known Family History: Positive: None, Cardiac Disease - Father, Other - [place]. CVA. Negative: Hypertension, Diabetes - Social History Occupation: Employed Full-time Lives: With Family Alcohol Use: Rare Substance Use Type: None Smoking Status (MU): Never Smoked Tobacco Have You Smoked in the Last Year: No - Immunization History Most Recent Influenza Vaccination: 05/19/2014 Most Recent Tetanus Shot: UNSURE Review of Systems Constitutional: Chills, Fatigue Skin: Negative Eyes: Negative ENT: Ear Ache, Nasal Discharge, Sinus Congestion, Sinus Pain/Tenderness Respiratory: Negative Cardiovascular: Negative Gastrointestinal: Negative Genitourinary: Negative Motor: Negative Neurovascular: Negative Musculoskeletal: Negative Neurological: Headache Psychological: Negative Is Patient Immunocompromised?: Yes All Other Systems Reviewed And Are Negative: No Physical Exam Triage Information Reviewed: Yes Appearance: Well-Appearing, No Pain Distress, Well-Nourished Vital Signs: Initial Vital Signs Temp 98.1 F 09/17/17 08:19 Pulse 97 09/17/17 08:19 Resp 20 09/17/17 08:19 BP 143/80 09/17/17 08:19 Pulse Ox 99 09/17/17 08:19 Vital Signs Reviewed: Yes Eye Exam: Normal Eyes: Positive: Conjunctiva Clear ENT Exam: Normal ENT: Positive: Normal ENT inspection, Pharynx normal, TMs normal, Sinus tenderness, Uvula midline. Negative: Nasal congestion, Nasal drainage, Tonsillar swelling, Tonsillar exudate, Trismus, Muffled voice, Hoarse voice, Dental tenderness Dental Exam: Normal Neck exam: Normal Neck: Positive: Supple, Nontender, No Lymphadenopathy Respiratory Exam: Normal Respiratory: Positive: Chest non-tender, Lungs clear, Normal breath sounds, No respiratory distress, No accessory muscle use Cardiovascular Exam: Normal Cardiovascular: Positive: RRR, No Murmur, Pulses Normal, Brisk Capillary Refill Musculoskeletal Exam: Normal Musculoskeletal: Positive: Strength Intact, ROM Intact, No Edema Neurological Exam: Normal Neurological: Positive: Alert, Muscle Tone Normal Psychological Exam: Normal Skin Exam: Normal Throat Pain/Nasal Course/Dx - Course Assessment/Plan: continue with nasal sprays and mucinex, levaquin follow with Dr. Bullock - Differential Dx/Diagnosis Provider Diagnoses: Rhinosinusitis, elevated blood pressure with hx of hypertension Discharge - Discharge Plan Condition: Stable Disposition: HOME Prescriptions: Levofloxacin TAB* [Levaquin TAB*] 500 mg PO DAILY #10 tab Patient Education Materials: Antitussive/Expectorant (By mouth), Rhinosinusitis (ED), Hypertension (ED) Referrals: Isaiah Bullock MD [Medical Doctor] - 1 Week
== END 2017-09-17 09:36 | disposition home or self-care (01) ==
LOC: UCEAST 08:10
DX: J32.9 Chronic sinusitis, unspecified (principal); I10 Essential (primary) hypertension
CPT/HCPCS: 99212; G0463

== ENCOUNTER 2017-10-04 14:29 | Emergency (ER) | payer BC ==
[2017-10-04 15:46] VITALS: BP 133/95
--- NOTE | 2017-10-04 16:19 | UC ---
Respiratory Complaint HPI - HPI Summary HPI Summary: PT REPORTS H/O RECURRENT SINUS INFECTIONS MONTHLY FOR YEARS. STATES SHE GETS ANTIBIOTICS ALMOST EVERY TIME. THIS MONTH HAS BEEN ON BOTH CLINDA AND LEVOFLOX AND STATES SX ARE NOT BETTER. STILL HAS RIGHT SIDED SINUES PRESSYRE, ADEN AND EAR PAIN. SOME DIZZINESS THIS MORNING. NO FEVER, NAUSEA, COUGH, ST. - History of Current Complaint Chief Complaint: UCRespiratory Stated Complaint: SINUS Time Seen by Provider: 10/04/17 16:06 Hx Obtained From: Patient Hx Last Menstrual Period: 09/30/17 Onset/Duration: Gradual Onset, Lasting Weeks, Still Present Timing: Constant Severity Initially: Moderate Severity Currently: Moderate Pain Intensity: 3 Pain Scale Used: 0-10 Numeric Aggravating Factors: Nothing Alleviating Factors: Nothing Associated Signs And Symptoms: Positive: Sinus Discomfort. Negative: Dyspnea, Fever, Chills, Pleuritic Chest Pain - Allergies/Home Medications Allergies/Adverse Reactions: Allergies Allergy/AdvReac Type Severity Reaction Status Date / Time amoxicillin Allergy Severe Anaphylatic Verified 09/17/17 08:30 Shock cromolyn Allergy Severe Anaphylatic Verified 09/17/17 08:30 Shock ipratropium [From Combivent] Allergy Severe Difficulty Verified 09/17/17 08:30 Breathing/Wheezing vancomycin Allergy Severe Anaphylatic Verified 09/17/17 08:30 Shock lorazepam Allergy Intermediate Abdominal Verified 09/17/17 08:30 Pain ondansetron Allergy Intermediate Blurred Verified 09/17/17 08:30 [From Zofran (as Vision hydrochloride)] cinnamon Allergy Unknown Unknown Verified 09/17/17 08:30 Reaction Details PMH/Surg Hx/FS Hx/Imm Hx Respiratory History: Asthma Other Cancer History: SCHAEFFER SARCOMA Other History Of: Negative For: HIV, Hepatitis B, Hepatitis C, Anticoagulant Therapy - Surgical History Surgical History: Yes Surgery Procedure, Year, and Place: BACK BIOPSY (SCHAEFFER'S SARCOMA), BONE MARROW CAP BILAT HIPS, LORRI CATH placement and removal; colonoscopy - Family History Known Family History: Positive: Cardiac Disease - Father, Other - [place]. CVA. Negative: Hypertension, Diabetes - Social History Alcohol Use: Rare Substance Use Type: None Smoking Status (MU): Never Smoked Tobacco Have You Smoked in the Last Year: No - Immunization History Most Recent Influenza Vaccination: 05/19/2014 Most Recent Tetanus Shot: UNSURE Review of Systems Constitutional: Negative ENT: Ear Ache, Sinus Congestion, Sinus Pain/Tenderness Respiratory: Negative Cardiovascular: Negative Gastrointestinal: Negative All Other Systems Reviewed And Are Negative: Yes Physical Exam Triage Information Reviewed: Yes Appearance: Well-Appearing, No Pain Distress, Well-Nourished Vital Signs: Initial Vital Signs Temp 99.2 F 10/04/17 15:36 Pulse 91 10/04/17 15:36 Resp 18 10/04/17 15:36 BP 133/95 10/04/17 15:36 Pulse Ox 100 10/04/17 15:36 Vital Signs Reviewed: Yes Eyes: Positive: Conjunctiva Clear ENT: Positive: Hearing grossly normal, Pharynx normal, TMs normal Dental: Positive: Other: - NO CLEAR ABSCESS OR GROSS DENTAL DECAY Neck: Positive: Supple, Nontender, No Lymphadenopathy Respiratory Exam: Normal Cardiovascular Exam: Normal Abdomen Description: Positive: Soft Musculoskeletal: Positive: No Edema Neurological: Positive: Alert Psychological: Positive: Age Appropriate Behavior Skin: Negative: rashes UC Diagnostic Evaluation - Laboratory O2 Sat by Pulse Oximetry: 100 Respiratory Course/Dx - Differential Dx/Diagnosis Provider Diagnoses: SINUSITIS - LOW SUSPICION FOR BACTERIAL INFECTION Discharge - Discharge Plan Condition: Stable Disposition: HOME Patient Education Materials: Sinusitis (ED) Forms: *Work Release Referrals: Isaiah Bullock MD [Medical Doctor] - As Soon As Possible Layton Colbert MD [Primary Care Provider] - If Needed Additional Instructions: YOU NEED TO SEE YOUR ENT FOR FURTHER EVALUATION OF YOUR SYMPTOMS. CALL FOR AN APPT MARCELA. [facility] [place] [address] AND [address] [facility] [phone] [facility] [place] [address] [phone]
== END 2017-10-04 16:26 | disposition home or self-care (01) ==
LOC: UCCORT 14:29
DX: J32.9 Chronic sinusitis, unspecified (principal)
CPT/HCPCS: 99211; G0463

== ENCOUNTER 2017-11-03 13:46 | Emergency (ER) | payer BC ==
[2017-11-03 14:26] VITALS: BP 130/80
--- NOTE | 2017-11-03 15:07 | UC ---
Respiratory Complaint HPI - HPI Summary HPI Summary: Patient c/o sinus pain on right maxilla where she had some dental work weeks ago and right frontal area. States she has these symptoms for the past 3 weeks, along with yellow nasal d/c. She has been using albuterol MDI yesterday morning and continues with zyrtec, melatonin and nasonex. Patient denies fever but states she has been having some loose stools since yesterday and vomited her breakfast yesterday. She has been taking sips of water and is producing concentrated urine. LMD 11/01/17 - History of Current Complaint Chief Complaint: UCGeneralIllness Stated Complaint: SINUS PAIN, PRESSURE Time Seen by Provider: 11/03/17 14:59 Hx Obtained From: Patient Hx Last Menstrual Period: 11-01-17 Onset/Duration: Gradual Onset, Lasting Weeks Timing: Constant Severity Initially: Mild Severity Currently: Moderate Pain Intensity: 4 Alleviating Factors: Bronchodilator Associated Signs And Symptoms: Positive: Nasal Congestion, Sinus Discomfort - Risk Factors Pulmonary Embolism Risk Factors: Negative Cardiac Risk Factors: Negative Pseudomonas Risk Factors: Negative Tuberculosis Risk Factors: Negative - Allergies/Home Medications Allergies/Adverse Reactions: Allergies Allergy/AdvReac Type Severity Reaction Status Date / Time amoxicillin Allergy Severe Anaphylatic Verified 11/03/17 14:18 Shock cromolyn Allergy Severe Anaphylatic Verified 11/03/17 14:18 Shock ipratropium [From Combivent] Allergy Severe Difficulty Verified 11/03/17 14:18 Breathing/Wheezing vancomycin Allergy Severe Anaphylatic Verified 11/03/17 14:18 Shock lorazepam Allergy Intermediate Abdominal Verified 11/03/17 14:18 Pain ondansetron Allergy Intermediate Blurred Verified 11/03/17 14:18 [From Zofran (as Vision hydrochloride)] cinnamon Allergy Unknown Hives Verified 11/03/17 14:18 PMH/Surg Hx/FS Hx/Imm Hx Other History Of: Negative For: HIV, Hepatitis B, Hepatitis C, Anticoagulant Therapy - Surgical History Surgical History: Yes Surgery Procedure, Year, and Place: BACK BIOPSY (SCHAEFFER'S SARCOMA), BONE MARROW CAP BILAT HIPS, LORRI CATH placement and removal; colonoscopy - Family History Known Family History: Positive: None, Cardiac Disease - Father, Other - [place]. CVA. Negative: Hypertension, Diabetes - Social History Alcohol Use: Rare Substance Use Type: None Smoking Status (MU): Never Smoked Tobacco Have You Smoked in the Last Year: No - Immunization History Most Recent Influenza Vaccination: 05/19/2014 Most Recent Tetanus Shot: UNSURE Review of Systems ENT: Nasal Discharge, Sinus Pain/Tenderness Gastrointestinal: Vomiting, Diarrhea All Other Systems Reviewed And Are Negative: Yes Physical Exam Triage Information Reviewed: Yes Appearance: Well-Appearing, No Pain Distress, Obese Vital Signs: Initial Vital Signs Temp 98 F 11/03/17 14:20 Pulse 91 11/03/17 14:20 Resp 18 11/03/17 14:20 BP 130/80 11/03/17 14:20 Pulse Ox 97 11/03/17 14:20 Eyes: Positive: Conjunctiva Clear ENT: Positive: Pharynx normal, TMs normal, Uvula midline, Other - tender upon palpation right maxillary and frontal area Neck: Positive: Supple, Nontender, No Lymphadenopathy Respiratory: Positive: Chest non-tender, Lungs clear, Normal breath sounds, No respiratory distress Cardiovascular: Positive: RRR, No Murmur, Pulses Normal, Brisk Capillary Refill Abdomen Description: Positive: Nontender Bowel Sounds: Positive: Present UC Diagnostic Evaluation - Laboratory O2 Sat by Pulse Oximetry: 97 Respiratory Course/Dx - Course Course Of Treatment: Checked patient's medication allergies, start doxycycline 100mg po bid for 10 days and follow up with PCP and dental. COntinue oral hydration, avoid caffeine, alcohol. Monitor urine output and dilution. Start probiotics and yogurt. - Differential Dx/Diagnosis Provider Diagnoses: right maxillary sinusitis Discharge - Sign-Out/Discharge Documenting (check all that apply): Discharge - Discharge Plan Condition: Stable Disposition: HOME Prescriptions: DOXYcycline CAP(*) [DOXYcycline 100MG CAP(*)] 100 mg PO BID 10 Days #20 cap Patient Education Materials: Sinusitis (ED), Dehydration (ED) Referrals: Layton Colbert MD [Primary Care Provider] - - Billing Disposition and Condition Condition: STABLE Disposition: HOME
== END 2017-11-03 15:21 | disposition home or self-care (01) ==
LOC: UCEAST 13:46
DX: J32.0 Chronic maxillary sinusitis (principal); R11.10 Vomiting, unspecified; R19.7 Diarrhea, unspecified; Z88.1 Allergy status to other antibiotic agents
CPT/HCPCS: 99211; G0463

== ENCOUNTER 2017-11-25 16:04 | Emergency (ER) | payer BC ==
[2017-11-25 16:49] VITALS: BP 136/85
[2017-11-25] MEDS ORDERED: DOXYcycline CAP(*) 100 MG PO ONE (17:06)
--- NOTE | 2017-11-25 17:12 | UC ---
Throat Pain/Nasal Bj HPI - HPI Summary HPI Summary: Patient has 7 days of worsening sinus pain and congestion and upper dental pain worse on the left than the right. #2 patient has an atypical mole on her back it is asymmetric in nature the borders are jagged it is multicolored it is greater than 6 mm in diameter she also notices nerve pain in the area of the mole. 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 and has not told anybody about it yet - History of Current Complaint Chief Complaint: UCDentalProblem Stated Complaint: SINUS COMPLAINT Time Seen by Provider: 11/25/17 16:39 Hx Obtained From: Patient - something like something otherwise Hx Last Menstrual Period: 10/25/17 ?: No Onset/Duration: Sudden Onset, Lasting Weeks - 1, Other - mole has been on her back for 8 weeks Severity: Mild - ago Pain Intensity: 3 Pain Scale Used: 0-10 Numeric Cough: None Associated Signs & Symptoms: Positive: Sinus Discomfort, Nasal Discharge - Allergies/Home Medications Allergies/Adverse Reactions: Allergies Allergy/AdvReac Type Severity Reaction Status Date / Time amoxicillin Allergy Severe Anaphylatic Verified 11/25/17 16:36 Shock cromolyn Allergy Severe Anaphylatic Verified 11/25/17 16:36 Shock ipratropium [From Combivent] Allergy Severe Difficulty Verified 11/25/17 16:36 Breathing/Wheezing vancomycin Allergy Severe Anaphylatic Verified 11/25/17 16:36 Shock lorazepam Allergy Intermediate Abdominal Verified 11/25/17 16:36 Pain ondansetron Allergy Intermediate Blurred Verified 11/25/17 16:36 [From Zofran (as Vision hydrochloride)] cinnamon Allergy Unknown Hives Verified 11/25/17 16:36 Home Medications: Home Medications diPHENhydraMINE PO* [Benadryl PO 25 MG TAB*] 25 mg PO Q6H PRN 11/25/17 [History Confirmed 11/25/17] PMH/Surg Hx/FS Hx/Imm Hx Previously Healthy: No - Schaeffer sarcoma, environmental allergies GI/ History: Gastroesophageal Reflux - There is no obvious [address] Other History Of: Negative For: HIV, Hepatitis B, Hepatitis C, Anticoagulant Therapy - Surgical History Surgical History: Yes Surgery Procedure, Year, and Place: BACK BIOPSY (SCHAEFFER'S SARCOMA), BONE MARROW CAP BILAT HIPS, LORRI CATH placement and removal; colonoscopy - Family History Known Family History: Positive: None, Cardiac Disease - Father, Other - [place]. CVA. Negative: Hypertension, Diabetes - Social History Occupation: Employed Part-time Lives: With Family Alcohol Use: Rare Substance Use Type: None Smoking Status (MU): Never Smoked Tobacco Have You Smoked in the Last Year: No - Immunization History Most Recent Influenza Vaccination: 05/19/2014 Most Recent Tetanus Shot: UNSURE Review of Systems Constitutional: Negative Skin: Other - 1cmx4 mm figue 8 shaped mole on upper left back, 2 colors or brown pigment Eyes: Negative ENT: Dental Pain, Ear Ache, Nasal Discharge, Sinus Congestion, Sinus Pain/ Tenderness Respiratory: Negative Cardiovascular: Negative Gastrointestinal: Negative Genitourinary: Negative Motor: Negative Neurovascular: Negative Musculoskeletal: Negative Neurological: Negative Psychological: Negative Is Patient Immunocompromised?: No All Other Systems Reviewed And Are Negative: Yes Physical Exam Triage Information Reviewed: Yes Appearance: Well-Appearing, No Pain Distress, Well-Nourished Vital Signs: Initial Vital Signs Temp 98.6 F 11/25/17 16:40 Pulse 96 11/25/17 16:40 Resp 18 11/25/17 16:40 BP 136/85 11/25/17 16:40 Pulse Ox 99 11/25/17 16:40 Vital Signs Reviewed: Yes Eye Exam: Normal Eyes: Positive: Conjunctiva Clear ENT Exam: Normal ENT: Positive: Normal ENT inspection, Hearing grossly normal, Pharynx normal, Nasal congestion, Nasal drainage, TMs normal, Dental tenderness, Sinus tenderness, Uvula midline. Negative: Tonsillar exudate, Trismus, Muffled voice , Hoarse voice Dental Exam: Normal Neck exam: Normal Neck: Positive: Supple, Nontender, No Lymphadenopathy Respiratory Exam: Normal Respiratory: Positive: Chest non-tender, Lungs clear, Normal breath sounds, No respiratory distress, No accessory muscle use Cardiovascular Exam: Normal Cardiovascular: Positive: RRR, No Murmur, Pulses Normal, Brisk Capillary Refill Musculoskeletal Exam: Normal Musculoskeletal: Positive: Strength Intact, ROM Intact, No Edema Neurological Exam: Normal Neurological: Positive: Alert, Muscle Tone Normal Psychological Exam: Normal Skin Exam: Normal Skin: Positive: Other - Mole on right upper back as described Throat Pain/Nasal Course/Dx - Course Assessment/Plan: Follow with dermatology on Monday. Continue nasal sprays had and Mucinex treat with doxycycline, referral made for primary care - Differential Dx/Diagnosis Provider Diagnoses: Acute rhinosinusitis, atypical mole Discharge - Sign-Out/Discharge Documenting (check all that apply): Discharge - Discharge Plan Condition: Critical Disposition: HOME Prescriptions: DOXYcycline CAP(*) [DOXYcycline 100MG CAP(*)] 100 mg PO BID #19 cap Patient Education Materials: Sinusitis (ED), Atypical Mole (ED) Forms: *Work Release Referrals: [facility] [place] [facility]ERR[facility] [Outside] - 1 Week Maxi Moncada MD [Medical Doctor] - 11/27/17 () - Billing Disposition and Condition Condition: CRITICAL Disposition: HOME
== END 2017-11-25 17:17 | disposition home or self-care (01) ==
LOC: UCEAST 16:04
DX: J01.90 Acute sinusitis, unspecified (principal); D22.9 Melanocytic nevi, unspecified; K21.9 Gastro-esophageal reflux disease without esophagitis; Z88.1 Allergy status to other antibiotic agents; Z88.0 Allergy status to penicillin; Z88.8 Allergy status to other drugs, medicaments and biological substances
CPT/HCPCS: 99212; A9270-GY; G0463

== ENCOUNTER 2017-12-11 13:35 | Emergency (ER) | payer BC ==
[2017-12-11 14:14] VITALS: BP 134/83
--- NOTE | 2017-12-11 14:14 | UC ---
Respiratory Complaint HPI - HPI Summary HPI Summary: Pt presents with chest congestion, post nasal drip, and sinus pain/pressure/ congestion. She tells me that she has an extensive history of sinus infections and sees ENT for this. Over the last 3-4 months she has been on doxycycline, clindamycin, and levaquin for her sinus infections. Most recently, she just finished 10 days of doxycycline 4 days ago - felt like her sinus infection never was completely gone, but did improve. Has been taking mucinex, allergies medications, and using nasal sprays with no relief. Denies fever, chills, SOB, chest pain. - History of Current Complaint Stated Complaint: CONGESTION COUGH Time Seen by Provider: 12/11/17 14:13 Hx Obtained From: Patient Hx Last Menstrual Period: 11/01/17 Severity Initially: Mild Severity Currently: Mild Pain Intensity: 3 Pain Scale Used: 0-10 Numeric Character: Cough: Nonproductive - Allergies/Home Medications Allergies/Adverse Reactions: Allergies Allergy/AdvReac Type Severity Reaction Status Date / Time amoxicillin Allergy Severe Anaphylatic Verified 11/25/17 16:36 Shock cromolyn Allergy Severe Anaphylatic Verified 11/25/17 16:36 Shock ipratropium [From Combivent] Allergy Severe Difficulty Verified 11/25/17 16:36 Breathing/Wheezing vancomycin Allergy Severe Anaphylatic Verified 11/25/17 16:36 Shock lorazepam Allergy Intermediate Abdominal Verified 11/25/17 16:36 Pain ondansetron Allergy Intermediate Blurred Verified 11/25/17 16:36 [From Zofran (as Vision hydrochloride)] cinnamon Allergy Unknown Hives Verified 11/25/17 16:36 Home Medications: Home Medications guaiFENesin ER TAB [Mucinex*] 600 mg PO BID PRN 12/11/17 [History Confirmed 02/21] PMH/Surg Hx/FS Hx/Imm Hx - Additional Past Medical History Additional PMH: Chronic sinusitis Allergies Respiratory History: Asthma GI/ History: Gastroesophageal Reflux Other History Of: Negative For: HIV, Hepatitis B, Hepatitis C, Anticoagulant Therapy - Surgical History Surgical History: Yes Surgery Procedure, Year, and Place: BACK BIOPSY (SCHAEFFER'S SARCOMA), BONE MARROW CAP BILAT HIPS, LORRI CATH placement and removal; colonoscopy - Family History Known Family History: Positive: None, Cardiac Disease - Father, Other - CA. CVA. Negative: Hypertension, Diabetes - Social History Occupation: Employed Full-time Lives: With Family Alcohol Use: None Substance Use Type: None Smoking Status (MU): Never Smoked Tobacco Have You Smoked in the Last Year: No - Immunization History Most Recent Influenza Vaccination: 05/19/2014 Most Recent Tetanus Shot: UNSURE Review of Systems Constitutional: Negative Skin: Negative Eyes: Negative ENT: Nasal Discharge, Sinus Congestion, Sinus Pain/Tenderness Respiratory: Cough Cardiovascular: Negative Gastrointestinal: Negative Neurovascular: Negative Neurological: Negative Psychological: Negative All Other Systems Reviewed And Are Negative: Yes Physical Exam - Summary Physical Exam Summary: GENERAL: NAD. WDWN HEENT: NC/AT. Conjunctiva clear without inflammation or discharge. TMs intact , no bulging, erythema, or edema. Nasal mucosa mildly swollen and erythematous with clear discharge. TTP maxillary and frontal sinus. Posterior oropharynx without exudates, erythema, or tonsillar enlargement. Uvula midline. NECK: Supple without lymphadenopathy CHEST: CTAB. No r/r/w. No accessory muscle use. Breathing comfortably and in no distress. CV: RRR. Without m/r/g. Pulses intact. SKIN: No rashes, sores, lesions, or open wounds. NEURO: Alert. CN II-XII grossly intact. PSYCH: Age appropriate behavior. Triage Information Reviewed: Yes Vital Signs: Initial Vital Signs Temp 99.4 F 12/11/17 14:08 Pulse 113 12/11/17 14:08 Resp 16 12/11/17 14:08 BP 134/83 12/11/17 14:08 Pulse Ox 100 12/11/17 14:08 Diagnostic Evaluation - Laboratory O2 Sat by Pulse Oximetry: 100 Respiratory Course/Dx - Course Course Of Treatment: Asthma. Sinusitis. I stressed the importance of refraining from using antibiotics and she was understanding about this, but says if she does not get antibiotics - she will go to the ER in a few days because the congestion and pain will be so bad. Will try her with Clarithromycin and rx tessalon and prednisone for her asthma exacerbation. F/u with ENT MARCELA - Differential Dx/Diagnosis Provider Diagnoses: Sinusitis. Asthma exacerbation Discharge - Sign-Out/Discharge Documenting (check all that apply): Discharge/Admit/Transfer - Discharge Plan Condition: Stable Disposition: HOME Prescriptions: Benzonatate CAP* [Tessalon 100 MG CAP*] 100 mg PO TID PRN #21 cap PRN Reason: Cough Clarithromycin TAB* [Biaxin 500 MG TAB*] 500 mg PO BID #20 tab predniSONE TAB* [Deltasone TAB*] 50 mg PO DAILY #5 tab Patient Education Materials: Sinusitis (ED) Forms: *Work Release Referrals: No Primary Care Phys,NOPCP [Primary Care Provider] - Additional Instructions: If you develop a fever, shortness of breath, chest pain, new or worsening symptoms - please call your PCP or go to the ED. - Billing Disposition and Condition Condition: STABLE Disposition: HOME
== END 2017-12-11 14:53 | disposition home or self-care (01) ==
LOC: UCEAST 13:35
DX: J32.9 Chronic sinusitis, unspecified (principal); J45.901 Unspecified asthma with (acute) exacerbation; K21.9 Gastro-esophageal reflux disease without esophagitis; Z88.1 Allergy status to other antibiotic agents; Z88.0 Allergy status to penicillin; Z88.8 Allergy status to other drugs, medicaments and biological substances
CPT/HCPCS: 99212; G0463

== ENCOUNTER 2018-02-02 02:51 | Emergency (ER) | payer BC ==
[2018-02-02 03:12] LABS: ABS Basophils 0.1 10^3/ul (0-0.2); ABS Eosinophils 0.2 10^3/ul (0-0.6); ABS Lymphocytes 3.2 10^3/ul (1.0-4.8); ABS Monocytes 0.7 10^3/ul (0-0.8); ABS Neutrophils 5.4 10^3/ul (1.5-7.7); ABS Nucleated RBC 0 10^3/ul; Eosinophil % 1.9 % (0-6); Hematocrit 40 % (35-47); Hemoglobin 13.4 g/dl (12.0-16.0); Lymphocyte % 33.8 % (25-47); Mean Corpuscular HGB Conc 34 g/dl (31-36); Mean Corpuscular Hemoglobin 28 pg (27-31); Mean Corpuscular Volume 84 fL (80-97); Mean Platelet Volume 7.7 um3 (7.4-10.4); Nucleated Red Blood Cells % 0; Platelet Count 225 10^3/ul (150-450); Red Cell Distribution Width 15 % (10.5-15); White Blood Count 9.6 10^3/ul (3.5-10.8)
[2018-02-02 03:28] LABS: EGFR Non-African American 68.6 (>60)
[2018-02-02] MEDS ORDERED: Ketorolac INJ* 60 MG/2 ML VIAL IM ONE (03:44)
[2018-02-02] MEDS ORDERED: HYDROcodone/ACETAMIN 5-325 MG* 1 TAB PO ONE (03:44)
[2018-02-02 05:07] VITALS: BP 109/66
--- NOTE | 2018-02-02 05:20 | ED ---
Jerome Mccormick Tiffany, scribed for Chapo Eldridge MD on 02/02/18 at 0326 . - HPI Summary HPI Summary: 32 year old F presenting to [facility] complains of abdominal cramping since three hours ago. The patient rates the pain 1/10 in severity. Symptoms aggravated by nothing. Symptoms alleviated by nothing. Patient reports vaginal discharge and vaginal bleeding. Denies fever, lightheadedness, dizziness. In triage, patient felt abdominal pressure and water release. Patient is 12 weeks , has not seen OBGYN yet. A0. LNMP 10/31/17. - History of Current Complaint Chief Complaint: EDOBProblems Stated Complaint: 12 WEEKS PREG/CRAMPING/BLEEDING Time Seen by Provider: 02/02/18 03:16 Hx Obtained From: Patient Chief Complaint: Other: - abdominal cramping Onset/Duration: Started Hours Ago - 3, Still Present Timing: Constant Current Severity: Mild Pain Intensity: 1 Location of Pain: None Aggravating Factors: Nothing Alleviating Factors: Nothing Associated Signs and Symptoms: Positive: Negative - fever, lightheadedness, dizziness, Other: - vaginal bleeding, vaginal discharge - Assessment Hx Now: No Hx Hysterectomy: No - Allergies/Home Medications Allergies/Adverse Reactions: Allergies Allergy/AdvReac Type Severity Reaction Status Date / Time amoxicillin Allergy Severe Anaphylatic Verified 02/02/18 02:56 Shock cromolyn Allergy Severe Anaphylatic Verified 02/02/18 02:56 Shock ipratropium [From Combivent] Allergy Severe Difficulty Verified 02/02/18 02:56 Breathing/Wheezing vancomycin Allergy Severe Anaphylatic Verified 02/02/18 02:56 Shock lorazepam Allergy Intermediate Abdominal Verified 02/02/18 02:56 Pain ondansetron Allergy Intermediate Blurred Verified 02/02/18 02:56 [From Zofran (as Vision hydrochloride)] cinnamon Allergy Unknown Hives Verified 02/02/18 02:56 PMH/Surg Hx/FS Hx/Imm Hx Previously Healthy: No Endocrine/Hematology History: Denies: Hx Anticoagulant Therapy, Hx Blood Disorders, Hx Diabetes, Hx Thyroid Disease, Hx Unexplained Bleeding Cardiovascular History: Denies: Hx Congestive Heart Failure, Hx Deep Vein Thrombosis, Hx Hypertension , Hx Myocardial Infarction, Hx Pacemaker/ICD Respiratory History: Reports: Hx Asthma Denies: Hx Chronic Obstructive Pulmonary Disease (COPD), Hx Lung Cancer, Hx Pneumonia, Hx Pulmonary Embolism GI History: Denies: Hx Gall Bladder Disease, Hx Gastrointestinal Bleed, Hx Ulcer, Hx Urosepsis History: Denies: Hx Kidney Stones, Hx Renal Disease Musculoskeletal History: Reports: Other Musculoskeletal History - h/o chemo/ radiation resulting in poor bone quality Sensory History: Reports: Hx Contacts or Glasses Opthamlomology History: Reports: Hx Contacts or Glasses Neurological History: Reports: Hx Migraine, Other Neuro Impairments/Disorders - 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, had chemo and radiation Denies: Hx Dementia, Hx Seizures, Hx Transient Ischemic Attacks (TIA) Psychiatric History: Denies: Hx Anxiety, Hx Depression, Hx Panic Disorder, Hx Schizophrenia - "optical and regular kind.", Hx Bipolar Disorder - Cancer History Cancer Type, 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 Hx Chemotherapy: Yes Hx Radiation Therapy: Yes - Surgical History Surgery Procedure, Year, and Place: BACK BIOPSY (SCHAEFFER'S SARCOMA), BONE MARROW CAP BILAT HIPS, LORRI CATH placement and removal; colonoscopy Infectious Disease History: No Infectious Disease History: Reports: Hx Shingles, Hx Tuberculosis Denies: Hx Clostridium Difficile, Hx Hepatitis, Hx Human Immunodeficiency Virus (HIV), Hx of Known/Suspected MRSA, Hx Known/Suspected VRE, Hx Known/ Suspected VRSA, History Other Infectious Disease, Traveled Outside the [place] in Last 30 Days - Family History Known Family History: Positive: Cardiac Disease - Father, Other - CA. CVA. Negative: Hypertension, Diabetes - Social History Alcohol Use: None Hx Substance Use: No Substance Use Type: Reports: None Hx Tobacco Use: No Smoking Status (MU): Never Smoked Tobacco Have You Smoked in the Last Year: No Review of Systems Negative: Fever Positive: other - abdominal cramping, vaginal discharge, vaginal bleeding Neurological: Negative - lightheadedness, dizziness All Other Systems Reviewed And Are Negative: Yes Physical Exam - Summary Physical Exam Summary: Appearance: Well appearing, no pain distress Skin: warm, dry, reflects adequate perfusion Head/face: normal Eyes: EOMI, AN ENT: normal Neck: supple, non-tender Respiratory: CTA, breath sounds present Cardiovascular: tachycardic but regular Abdomen: non-tender, soft Bowel Sounds: present Musculoskeletal: normal, strength/ROM intact Neuro: normal, sensory motor intact, A&Ox3 Pelvic exam: Nan RN witnessed. On exam, patient had parotid conception in vaginal wall with minimal bleeding. There was a 3-cm fetus in patient's underwear. Following removal of parotid conception, patient's cramping improved , followed by minimal blood from cervix. - Physical Exam Triage Information Reviewed: Yes Vital Signs Reviewed: Yes Diagnostics - Vital Signs Vital Signs Temp Pulse Resp BP Pulse Ox 02/02/18 02:52 98.6 F 130 18 135/98 100 - Laboratory Lab Results: Lab Results 02/02/18 Range/Units 03:01 WBC 9.6 (3.5-10.8) 10^3/ul RBC 4.80 (4.00-5.40) 10^6/ul Hgb 13.4 (12.0-16.0) g/dl Hct 40 (35-47) % MCV 84 (80-97) fL MCH 28 (27-31) pg MCHC 34 (31-36) g/dl RDW 15 (10.5-15) % Plt Count 225 (150-450) 10^3/ul MPV 7.7 (7.4-10.4) um3 Neut % (Auto) 55.9 (38-83) % Lymph % (Auto) 33.8 (25-47) % [place] % (Auto) 7.8 H (0-7) % Eos % (Auto) 1.9 (0-6) % Baso % (Auto) 0.6 (0-2) % Absolute Neuts (auto) 5.4 (1.5-7.7) 10^3/ul Absolute Lymphs (auto) 3.2 (1.0-4.8) 10^3/ul Absolute Monos (auto) 0.7 (0-0.8) 10^3/ul Absolute Eos (auto) 0.2 (0-0.6) 10^3/ul Absolute Basos (auto) 0.1 (0-0.2) 10^3/ul Absolute Nucleated RBC 0 10^3/ul Nucleated RBC % 0 Result Diagrams: 02/02/18 03:01 02/02/18 03:00 Lab Statement: Any lab studies that have been ordered have been reviewed, and results considered in the medical decision making process. Course/Dx - Course Course Of Treatment: Patient passed tissue while in triage and I was able to help her pass the remainder products of conception here during the exam. Her bleeding and cramping significantly decreased after. The products of conception including what looked like a small fetus was sent to the lab for analysis. Patient's blood type is A+. Her blood counts are stable. She is discharged to follow up closely with her primary care physician given that ultrasound is unavailable at this point. This likely is complete spontaneous miscarriage but is suggested that she get outpatient ultrasound to rule out any further retained products of conception. She will keep her pending first OB/ [facility] appointment on February 08. - Differential Diagnosis/HQI/PQRI: Other: - Incomplete versus complete spontaneous miscarriage. Molar . Ectopic . - Diagnoses Provider Diagnoses: Complete Discharge - Sign-Out/Discharge Documenting (check all that apply): Discharge/Admit/Transfer - discharge - Discharge Plan Condition: Improved Disposition: HOME Patient Education Materials: Miscarriage (ED) Forms: *Work Release Referrals: Elvira WETZEL,Sam [Medical Doctor] - Additional Instructions: Call your primary care provider first thing in the morning to have them schedule here for an outpatient ultrasound. This is to confirm that all the products of conception have come out. Return to the ER with increased bleeding , pain, fever, worse or other concerns as discussed. Keep your appointment with SHIP ENGINEER on February 08. Continue your vitamin. It is safe to take Tylenol or ibuprofen for cramping. - Billing Disposition and Condition Condition: IMPROVED Disposition: Home The documentation as recorded by the Jerome davis Tiffany accurately reflects the service I personally performed and the decisions made by me, Chapo Eldridge MD.
== END 2018-02-02 05:05 | disposition home or self-care (01) ==
LOC: ED 02:51
DX: O03.9 Complete or unspecified spontaneous abortion without complication (principal); Z85.830 Personal history of malignant neoplasm of bone; Z92.21 Personal history of antineoplastic chemotherapy; Z92.3 Personal history of irradiation; Z88.3 Allergy status to other anti-infective agents; Z88.8 Allergy status to other drugs, medicaments and biological substances
CPT/HCPCS: 36415; 80048; 84702; 85025; 86900; 86901; 88305; 96372; 99284; J1885

== ENCOUNTER → 2018-02-20 08:01 | Day surgery (SDC) | payer BC ==
[~2018-02-20 08:01] MED LIST: Buffered Lidocaine 0.9% SYRIN* 5 ML/SYR SYRINGE INTRADERM ONE; DOXYcycline IV* 100 MG in NS 0.9% 250 ML* 250 ML IVPB ONE; Dexamethasone IV* 4 MG/ML 1 ML (4 MG) IV SLOW PU ONE; Dexamethasone IV* 4 MG/ML 1 ML (4 MG) ONE; DiMENhydriNATE IV* 50 MG/ML VIAL IV PUSH PRN; EPHEDrine (Pressors)* 50 MG/ML VIAL ONE; Famotidine IV* 10 MG/ML 2 ML (20 mg) IV ONE; Famotidine IV* 10 MG/ML 2 ML (20 mg) ONE; HYDROcodone/ACETAMIN 5-325 MG* 1 TAB PO PRN; Ketorolac INJ* 30 MG/ML 1 ML VIAL IV PRN; Lidocaine 1% INJ* 10 MG/ML 30 ML SDV ONE; Lidocaine 2% PF * 5 ML VIAL ONE; Midazolam* 1 MG/ML 5 ML VIAL (5 MG) ONE; Naloxone* 0.4 MG/ML 1 ML VIAL IV PRN; PROCHLORPERAZINE INJ 5 MG/ML 2 ML VIAL ONE; Propofol* 500 MG/50 ML BTL ONE; fentaNYL* 50 MCG/ML 2 ML VIAL (100 MCG VIAL) IV PRN; fentaNYL* 50 MCG/ML 2 ML VIAL (100 MCG VIAL) ONE; oxyCODONE/Acetamin 5/325 MG* TAB PO PRN
[2018-02-20 11:52] VITALS: BP 103/67
--- NOTE | 2018-02-21 02:20 | OP ---
DATE OF OPERATION: 02/20/18 - [facility] DATE OF : 83 SURGEON: Lance Peters MD ANESTHESIA: General endotracheal tube. PRE-OP DIAGNOSIS: Missed . POST-OP DIAGNOSIS: Missed . OPERATIVE PROCEDURE: D and C. ESTIMATED BLOOD LOSS: 50 cc. SPECIMEN: Include products of conception. FINDINGS: On exam under anesthesia, the uterus was anteverted and 8 weeks' size. There were no adnexal masses. Cervix, vagina and vulva appeared normal. On curettage, a moderate amount of tissue was obtained. DESCRIPTION OF PROCEDURE: The patient identified, procedure identified as a D and C. The patient's abdomen was prepped and draped in the usual fashion in the dorsal lithotomy position under general anesthesia. Two single-tooth tenaculums were placed in the anterior lip of the cervix. Cervix was easily dilated up to a #28 Estrada dilator. A #8 suction curette was inserted. Suction curettage performed. The sharp curette was inserted. Sharp curettage was performed with a moderate amount of tissue obtained. Further tissue was obtained using the suction with scant tissue at this point. Sharp curette was reinserted and a gritty sensation was felt throughout the circumference. The suction curette was inserted one more time and no more further tissue was obtained. Instruments were removed from the vagina. All sponge and instrument counts were correct and the patient returned to recovery room in stable condition. [id number]/CPS #: [id number] MTDD
== END | disposition home or self-care (01) ==
LOC: OR 08:01
PROVIDERS: ATTEND Obstetrics & Gynecology
DX: O02.1 Missed abortion (principal); F32.2 Major depressive disorder, single episode, severe without psychotic features; Z85.830 Personal history of malignant neoplasm of bone; J45.909 Unspecified asthma, uncomplicated; F41.9 Anxiety disorder, unspecified
CPT/HCPCS: 88305; J0780; J1100; J2250; J2704; J3010

== ENCOUNTER 2018-03-05 18:13 | Emergency (ER) | payer BC ==
--- OUTSIDE RECORDS SUMMARY | 2018-03-05 18:18 | XMS REPORT ---
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 Cortes PayID: [id number] [address] [address] [place] [address] Problems Date Description Provider Status Onset: 02/10/2018 History of Ewings sarcoma Jeanna Miguel CNM Active Family History Date Family Member(s) Problem(s) Comments Father Heart Disease Mother A&W Children None Siblings 1 Siblings Oldest of 2 children First Brother Asthma First Brother Allergies, Environmental Paternal Grandfather due to NE () Paternal Grandmother Hypertension Paternal Grandmother Breast Cancer Maternal Grandfather due to COPD () Maternal Grandmother due to Stroke () Maternal Grandmother due to Breast Cancer () Social History Type Date Description Comments Education Highest level completed, 1 year of college Marital Status Lives With Sleep Typically sleeps 5 hours a night Pets 1 dog Occupation [employer] Cigarette Use Never Smoked Cigarettes ETOH Use Does Not Drink Alcohol Recreational Drug Use Does Not Use Drugs Smoking Patient has never smoked Daily Caffeine Consumes on average 1 cup of coffee per day Exercise Type/Frequency Exercises sporadically Seat Belt/Car Seat Always uses seat belt Currently Active Patient is currently sexually active Contraceptive Methods None STD's No STD History Allergies, Adverse Reactions, Alerts Date Description Reaction Status Severity Comments 02/10/2018 Amoxicillin Anaphylaxis active Severe 02/10/2018 Cromolyn difficulty breathing active Severe 02/10/2018 Ipratropium difficulty breathing active Severe 02/10/2018 Vancomycin Anaphylaxis active Severe 02/10/2018 Lorazepam abdominal pain active Moderate 02/10/2018 Ondansetron blurred vision active 02/10/2018 Cinnamon Urticaria active Medications Medication Date Status Form Strength Qnty SIG Indications Ordering Provider Sertraline HCL 02/15/ Active Tablets 25mg 60tabs 1 po qd x F32.2 Lance Goode 2018 1week then 1 Gelber, bid M.D. / Active Capsules 27-0.8-250 take one/ Unknown Multivitamin 0000 mg day. may Plus Dha substitute any pnv w/ dha. Medications Administered in Office Medication Date Status Form Strength Qnty SIG Indications Ordering Provider PT SCRN Tbco Administered Injection Lance Goode Id as Non User 018 Liseth Peters PT SCRN Tbco Administered Injection Jeanna Id as Non User 018 DOUG Miguel Vital Signs Date Vital Result Comment 02/15/2018 BP Systolic 124 mmHg BP Diastolic 74 mmHg Height 64 inches 5'4" Weight 207.00 lb BMI (Body Mass Index) 35.5 kg/m2 Last Menstrual Period [id number] 1 Parity 0 02/08/2018 BP Systolic 114 mmHg BP Diastolic 68 mmHg Weight 210.00 lb Results Description No Information Procedures Date CPT Code Description Status 02/15/2018 81723 Echography Transvaginal Completed 02/08/2018 92917 Echography Transvaginal Completed Encounters Type Date Location Provider CPT E/M Dx Office Visit 02/08/2018 3:[facility] Jeanna Miguel CNM 57593 O03.9 Plan of Care 02/15/2018 - Lance Peters M.D.[id number] Encounter for other preprocedural examinationComments:PT EXPLAINED RISKS OF DILATION AND CURRETAGE . <1% RISK OF BLEEDING INFECTION, INJURY TO UTERUS BOWEL OR BLADDER. POSSIBLE RETAINED POC NEED FOR REPEAT DILATION AND CURRETAGE.F32.2 Major depressv disord, single epsd , sev w/o psych featuresNew Medication:Sertraline HCL 25 mg
--- OUTSIDE RECORDS SUMMARY | 2018-03-05 18:18 | XMS REPORT ---
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 Payers Type Date Identification Numbers Payment Provider Subscriber Commercial PayID: [id number] [employer]/BS [facility] Cortes [address] [address] [place] [address] Problems Description No Information Family History Date Family Member(s) Problem(s) Comments Father Heart Disease Mother A&W Social History Type Date Description Comments Marital Status Lives With Cigarette Use Never Smoked Cigarettes ETOH Use Does Not Drink Alcohol Recreational Drug Use Does Not Use Drugs Smoking Patient has never smoked Daily Caffeine Does not consume caffeine STD's No STD History Allergies, Adverse Reactions, Alerts Date Description Reaction Status Severity Comments 02/10/2018 Amoxicillin Anaphylaxis active Severe 02/10/2018 Cromolyn difficulty breathing active Severe 02/10/2018 Ipratropium difficulty breathing active Severe 02/10/2018 Vancomycin Anaphylaxis active Severe 02/10/2018 Lorazepam abdominal pain active Moderate 02/10/2018 Ondansetron blurred vision active 02/10/2018 Cinnamon Urticaria active Medications Medication Date Status Form Strength Qnty SIG Indications Ordering Provider 00/ Active Capsules 27-0.8-250 take one/ Unknown Multivitamin 0000 mg day. may Plus Dha substitute any pnv w/ dha. Vital Signs Date Vital Result Comment 02/08/2018 BP Systolic 114 mmHg BP Diastolic 68 mmHg Weight 210.00 lb Results Description No Information Procedures Date CPT Code Description Status 02/08/2018 71085 Echography Transvaginal Completed Plan of Care Future Appointment(s):02/15/2018 3:20 pm - Lance Peters M.D. at [facility]02/15/2018 3:00 pm - Ultrasounds at [facility]02/08/2018 - Jeanna Miguel, CNMO03.9 Complete or unsp spontaneous without complication
--- OUTSIDE RECORDS SUMMARY | 2018-03-05 18:18 | XMS REPORT ---
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
[2018-03-05 18:26] VITALS: BP 129/77
--- NOTE | 2018-03-05 18:28 | UC ---
Back Pain HPI - HPI Summary HPI Summary: 32 yo female c/o sudden low back pain this am approx 07:00am, when leaning over in her house to roller picker a piece of paper. No new p/d/w. No b/b change. Hurts to fully straighten. Did go to work today,but was difficult. Sign PMH - Ewings sarcoma dx'd age 13, s/p bx, s/p ctx and rtx age 15. No problems since. Concerned d/t initial sx initially at time of ca dx, she had a disc d/o in similar location. Reports that since above tx, she has been areflexic BLE. Also has permanent area of dysesthesia L lower back. Sing PMH / PSH #2 - approx 1 week s/p d/c d/t retained products of , s/ p miscarriage 3 months earlier. - History of Current Complaint Chief Complaint: UCBackPain Stated Complaint: BACK PAIN Time Seen by Provider: 03/05/18 18:25 Hx Obtained From: Patient Hx Last Menstrual Period: 11/01/17 Pain Intensity: 9 - Allergies/Home Medications Allergies/Adverse Reactions: Allergies Allergy/AdvReac Type Severity Reaction Status Date / Time amoxicillin Allergy Severe Anaphylatic Verified 03/05/18 18:26 Shock cromolyn Allergy Severe Anaphylatic Verified 03/05/18 18:26 Shock ipratropium [From Combivent] Allergy Severe Difficulty Verified 03/05/18 18:26 Breathing vancomycin Allergy Severe Anaphylatic Verified 03/05/18 18:26 Shock cinnamon Allergy Unknown Hives Verified 03/05/18 18:26 lorazepam AdvReac Intermediate Agitation Verified 03/05/18 18:26 ondansetron [From Zofran] AdvReac Dizziness Verified 03/05/18 18:26 PMH/Surg Hx/FS Hx/Imm Hx Previously Healthy: Yes - however, see hpi Other History Of: Negative For: HIV, Hepatitis B, Hepatitis C, Anticoagulant Therapy - Surgical History Surgical History: Yes Surgery Procedure, Year, and Place: back biopsy & bone marrow taken from bilateral hips 2001. powerport placed at same time as biopsy 2001. powerport removal 2003 - [place] - Family History Known Family History: Positive: None, Cardiac Disease - Father, Other - CA. CVA. Negative: Hypertension, Diabetes - Social History Alcohol Use: Rare Substance Use Type: None Smoking Status (MU): Never Smoked Tobacco Have You Smoked in the Last Year: No - Immunization History Most Recent Influenza Vaccination: 05/19/2014 Most Recent Tetanus Shot: UNSURE Review of Systems Constitutional: Negative Skin: Negative, Other Eyes: Negative ENT: Negative Respiratory: Negative Cardiovascular: Negative Gastrointestinal: Negative Genitourinary: Negative Motor: Other - see hpi Musculoskeletal: Other: - see hpi Neurological: Other - see hpi Psychological: Negative Is Patient Immunocompromised?: No All Other Systems Reviewed And Are Negative: Yes Physical Exam Triage Information Reviewed: Yes Appearance: Well-Nourished - sitting up, painful to walk or straighten Vital Signs: Initial Vital Signs Temp 98.4 F 03/05/18 18:19 Pulse 90 03/05/18 18:19 Resp 20 03/05/18 18:19 BP 129/77 03/05/18 18:19 Pulse Ox 98 03/05/18 18:19 Vital Signs Reviewed: Yes Eye Exam: Normal - grossly normal Neck exam: Normal Neck: Positive: Supple, Nontender Respiratory Exam: Normal Respiratory: Positive: Chest non-tender, Lungs clear, Normal breath sounds, No respiratory distress, No accessory muscle use Cardiovascular Exam: Normal Cardiovascular: Positive: RRR, No Murmur, Pulses Normal, Brisk Capillary Refill Abdominal Exam: Normal Abdomen Description: Positive: Nontender Musculoskeletal Exam: Other - Moves x 4 ext's, gait slow, steady. Hunched over d/t pain. Mid back lower thoracic / upper lumbar region + surgical scar. Tender to pressure mid spine itz L-3, and T12 region. No discoloration, no crepitus. + L lower lat back with anesthetic patch. + muscle spasm. Neurological Exam: Other - see [facility] Psychological Exam: Normal - conversing easily and appropriately Skin Exam: Normal - no visible or reported rash Back Pain Course/Dx - Course Course Of Treatment: D/w Ms. Cortes the importance of further imaging. Certainly tendon strain / disc d/o are high on the differential; however, given hx as noted in hpi, further investigation is indicated (cancer, delayed effect radiation tx, etc). Ms Cortes carefully considered this, and expresses understanding and agreement. However, she does not want to go the ED tonight, she will have plain xrays today, and will call pcp and / or oncologist this week for f/u. Would like muscle relaxers / nsaid script. She is aware that there could be a serious undx'd issue, but she still would like to go home tonight. Work note offered. Also - politely but adamantly refuses ucg - s/p d/ c last week and "I haven't had sex since the miscarriage.". Questions as posed answered to the best of my ability. Reviewed xrays lumber / thoracic. Appreciate Dr. Reaves's readings, see reports in [employer]. DJD L4-L5 with endplate chnages. Mild levoscoliosis centered at L3-L4. Reference #: [id number] - Differential Dx/Diagnosis Provider Diagnoses: Acute low back pain. See above MDM Discharge - Sign-Out/Discharge Documenting (check all that apply): Patient Departure - Discharge Plan Condition: Stable Disposition: HOME Patient Education Materials: Low Back Strain (ED), Degenerative Disc Disease ( ED) Referrals: Layton Colbert MD [Primary Care Provider] - Additional Instructions: Very important to follow up with your primary care physician and / or oncologist THIS WEEK. Xrays alone are not sufficient for soft tissue imaging (ex tendon, disc details , delayed effect radiation inj, cancer). Please seek medical attention for worse or new problems. - Billing Disposition and Condition Condition: STABLE Disposition: Home
--- NOTE | 2018-03-05 19:11 | RAD ---
Indication: Low back pain 2 views of the thoracic spine demonstrate vertebral bodies to be normal in height. Disc spaces all well-preserved. Pedicles appear intact. IMPRESSION: No fracture of the thoracic spine is noted.
--- NOTE | 2018-03-05 19:12 | RAD ---
Indication: Low back pain. 5 views of the lumbar spine are reviewed. The vertebral bodies appear normal in height. There is disc space narrowing at L4-L5 with endplate changes and sclerosis. Ventral and dorsal osteophyte formation is noted. There is mild levoscoliosis centered at L3-L4. No fracture is identified. IMPRESSION: Degenerative disc disease at L4-L5 with endplate changes. Mild levoscoliosis centered at L3-L4.
== END 2018-03-05 20:05 | disposition home or self-care (01) ==
LOC: UCEAST 18:13
DX: M54.5 Low back pain (principal); Z88.0 Allergy status to penicillin; Z88.1 Allergy status to other antibiotic agents; Z88.8 Allergy status to other drugs, medicaments and biological substances; Z91.018 Allergy to other foods
CPT/HCPCS: 72070; 72110; 99212; G0463

== ENCOUNTER 2018-03-13 17:03 | Emergency (ER) | payer BC ==
[2018-03-13 17:26] VITALS: BP 146/66
--- NOTE | 2018-03-13 17:54 | UC ---
Throat Pain/Nasal Bj HPI - HPI Summary HPI Summary: This is scribe [facility] documenting for attending Craig Cormier MD. This patient is a 32 year old F presenting to [facility] with a chief complaint of tooth and mouth pain since yesterday. The patient rates the pain 8/10 in severity. Patient reports pain in the lower right sinus, gum pain, severe teeth pain, jaw pain and edema, right ear pain, loose teeth, difficulty eating, and difficulty sleeping. Pt reports that she has recurring facial cellulitis that starts with these symptoms. Pt last had this reaction one year ago and it was treated with 2 10 day courses of antibiotics. Pt reports she has two root canals and two crowns next to each other in her mouth and thinks it may be the source of these infections. Pt reports that she felt completely normal at the start of the day yesterday. PMHX facial cellulitis. No PMHx TMJ. No FHx HTN. I, Dr. Cormier, personally performed the services described in this documentation as scribed in my presence and it is both accurate and complete. - History of Current Complaint Chief Complaint: UCGeneralIllness Stated Complaint: SINUS PAIN,TEETH PAIN Time Seen by Provider: 03/13/18 17:38 Hx Obtained From: Patient Hx Last Menstrual Period: 03/12/18 Onset/Duration: Sudden Onset, Lasting Days - 1 Severity: Severe Pain Intensity: 8 Pain Scale Used: 0-10 Numeric Associated Signs & Symptoms: Positive: Negative - Allergies/Home Medications Allergies/Adverse Reactions: Allergies Allergy/AdvReac Type Severity Reaction Status Date / Time amoxicillin Allergy Severe Anaphylatic Verified 03/13/18 17:26 Shock cromolyn Allergy Severe Anaphylatic Verified 03/13/18 17:26 Shock ipratropium [From Combivent] Allergy Severe Difficulty Verified 03/05/18 18:26 Breathing vancomycin Allergy Severe Anaphylatic Verified 03/13/18 17:26 Shock cinnamon Allergy Unknown Hives Verified 03/13/18 17:26 lorazepam AdvReac Intermediate Agitation Verified 03/13/18 17:26 ondansetron [From Zofran] AdvReac Dizziness Verified 03/13/18 17:26 PMH/Surg Hx/FS Hx/Imm Hx Other Endocrine History: Facial cellulitis Other Cardiovascular History: No PMHx HTN Other History Of: Negative For: HIV, Hepatitis B, Hepatitis C, Anticoagulant Therapy - Surgical History Surgical History: Yes Surgery Procedure, Year, and Place: back biopsy & bone marrow taken from bilateral hips 2001. powerport placed at same time as biopsy 2001. powerport removal 2003 [place] - Family History Known Family History: Positive: Cardiac Disease - Father, Other - CA. CVA. Negative: Hypertension, Diabetes - Social History Alcohol Use: Rare Substance Use Type: None Smoking Status (MU): Never Smoked Tobacco Have You Smoked in the Last Year: No - Immunization History Most Recent Influenza Vaccination: 05/19/2014 Most Recent Tetanus Shot: UNSURE Review of Systems ENT: Dental Pain, Sinus Pain/Tenderness, Other - gum pain, jaw pain, loose teeth Musculoskeletal: Edema - jawa, Other: - jaw pain, teeth pain Neurological: Other - difficulty sleeping All Other Systems Reviewed And Are Negative: Yes Physical Exam - Summary Physical Exam Summary: General: well-appearing, no pain distress Skin: warm, color reflects adequate perfusion, dry Head: normal Eyes: EOMI, AN ENT: Right upper molars TTP. Right cheek TTP. Neck: supple, nontender Respiratory: CTA, breath sounds present Cardiovascular: RRR Abdomen: soft, nontender Bowel: present Musculoskeletal: normal, strength/ROM intact Neurological: sensory/motor intact, A&O x3 Psychological: affect/mood appropriate Triage Information Reviewed: Yes Vital Signs: Initial Vital Signs Temp 98.3 F 03/13/18 17:20 Pulse 88 03/13/18 17:20 Resp 20 03/13/18 17:20 BP 146/66 03/13/18 17:20 Pulse Ox 100 03/13/18 17:20 Vital Signs Reviewed: Yes Throat Pain/Nasal Course/Dx - Course Course Of Treatment: NO SIGN OF CELLULITIS AT THIS TIME. F/U ENT FOR THIS RECURRENT ISSUE; RECHECK SOONER IF WORSE. - Differential Dx/Diagnosis Provider Diagnoses: DENTAL PAIN Discharge - Sign-Out/Discharge Documenting (check all that apply): Patient Departure - Discharge Plan Condition: Stable Disposition: HOME Prescriptions: Acetaminop/Codeine 30 MG TAB* [Tylenol/Codeine 30 MG TAB*] 1 - 2 tab PO Q6H PRN #30 tab MDD 8 PRN Reason: Pain Clindamycin Cap(NF) [Clindamycin Cap 300 mg Cap(NF)] 300 mg PO Q6H #40 cap Patient Education Materials: Toothache (ED) Referrals: Isaiah Bullock MD [Medical Doctor] - Layton Colbert MD [Primary Care Provider] - Additional Instructions: FOLLOW UP WITH ENT. GET RECHECKED FOR ANY WORSENING OF YOUR CONDITION OR QUESTIONS OR CONCERNS. - Billing Disposition and Condition Condition: STABLE Disposition: Home
== END 2018-03-13 17:58 | disposition home or self-care (01) ==
LOC: UCEAST 17:03
DX: K08.89 Other specified disorders of teeth and supporting structures (principal); Z88.1 Allergy status to other antibiotic agents; Z88.0 Allergy status to penicillin; Z88.8 Allergy status to other drugs, medicaments and biological substances; Z82.49 Family history of ischemic heart disease and other diseases of the circulatory system; Z80.9 Family history of malignant neoplasm, unspecified; Z82.3 Family history of stroke
CPT/HCPCS: 99202; G0463

== ENCOUNTER 2018-08-13 16:56 | Emergency (ER) | payer BC ==
[2018-08-13 17:12] VITALS: BP 135/81
--- NOTE | 2018-08-13 17:20 | UC ---
Shoulder Pain HPI - HPI Summary HPI Summary: 33-year-old woman comes to clinic with a chief complaint of left neck chest shoulder and arm pain. She woke up with this pain this morning. The pain is moderate to severe. It is least it's a 6 out of 10 at its worse is a 10 out of 10. She reports having some palpitations. Denies any shortness of breath. Pain is worse with palpation of the left neck in the musculature to the shoulder. It's also worse pain with movement. 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 I asked her if this pain reminds her of that pain and she says it similar. - History of Current Complaint Chief Complaint: UCChestPain Stated Complaint: SHOULDER AND ARM PAIN Time Seen by Provider: 08/13/18 17:04 Hx Last Menstrual Period: 03/12/18 Pain Intensity: 8 - Allergies/Home Medications Allergies/Adverse Reactions: Allergies Allergy/AdvReac Type Severity Reaction Status Date / Time amoxicillin Allergy Severe Anaphylatic Verified 08/13/18 17:19 Shock cromolyn Allergy Severe Anaphylatic Verified 08/13/18 17:19 Shock ipratropium [From Combivent] Allergy Severe Difficulty Verified 08/13/18 17:19 Breathing vancomycin Allergy Severe Anaphylatic Verified 08/13/18 17:19 Shock cinnamon Allergy Unknown Hives Verified 08/13/18 17:19 lorazepam AdvReac Intermediate Agitation Verified 08/13/18 17:19 ondansetron [From Zofran] AdvReac Dizziness Verified 08/13/18 17:19 PMH/Surg Hx/FS Hx/Imm Hx Previously Healthy: Yes - SCHAEFFER'S SARCOMA Other History Of: Negative For: HIV, Hepatitis B, Hepatitis C, Anticoagulant Therapy - Surgical History Surgical History: Yes Surgery Procedure, Year, and Place: back biopsy & bone marrow taken from bilateral hips 2001 - . powerport placed at same time as biopsy 2001. powerport removal 2003 [place] - Family History Known Family History: Positive: Cardiac Disease - Father, Other - CA. CVA. Negative: Hypertension, Diabetes - Social History Alcohol Use: Rare Substance Use Type: None Smoking Status (MU): Never Smoked Tobacco Have You Smoked in the Last Year: No - Immunization History Most Recent Influenza Vaccination: 05/19/2014 Most Recent Tetanus Shot: UNSURE Review of Systems All Other Systems Reviewed And Are Negative: Yes Constitutional: Positive: Negative Skin: Positive: Negative Eyes: Positive: Negative ENT: Positive: Negative Respiratory: Positive: Negative Cardiovascular: Positive: Palpitations, Chest Pain Gastrointestinal: Positive: Negative Motor: Positive: Negative Neurovascular: Positive: Negative Musculoskeletal: Positive: Other: - SEE HPI Neurological: Positive: Negative Psychological: Positive: Negative Is Patient Immunocompromised?: No Physical Exam Triage Information Reviewed: Yes Appearance: Well-Appearing, Well-Nourished, Pain Distress - MODERATE PAIN DISTRESS Vital Signs: Initial Vital Signs Temp 98.9 F 08/13/18 17:05 Pulse 85 08/13/18 17:05 Resp 18 08/13/18 17:05 BP 135/81 08/13/18 17:05 Pulse Ox 100 08/13/18 17:05 Vital Signs Reviewed: Yes Eye Exam: Normal Eyes: Positive: Conjunctiva Clear Neck: Positive: Other: - TENDER TO PALPATION LEFT NECK. PAIN WITH ROM. Respiratory Exam: Normal Respiratory: Positive: Lungs clear, Normal breath sounds, No respiratory distress Cardiovascular: Positive: RRR Musculoskeletal: Positive: Other: - Patient is tender to palpation left neck and left trapezius left shoulder left triceps. Increased pain with range of motion of the neck or shoulder. Normal radial pulses. Normal capillary refill in the arms and hands. Fingers wrist elbows have full range of motion. Pain with range of motion of the left elbow. Patient declines movement of the shoulder due to concern of pain. Neurological Exam: Normal Neurological: Positive: Alert Psychological Exam: Normal Psychological: Positive: Age Appropriate Behavior Skin Exam: Normal Diagnostics - EKG Cardiac Rate: NL - AT 17:03 Cardiac Rhythm: Sinus: Normal - NSR 77BPM Ectopy: None ST Segment: Normal Shoulder Course/Dx - Course Course Of Treatment: I do not appreciate any ischemic changes on the EKG. Most probable cause of the pain is musculoskeletal. However I cannot fully evaluate cardiac or pulmonary possibilities without real-time labs here in clinic. With the patient's history of Schaeffer sarcoma a lesion in the cervical spine is another concern. We do not have CT in clinic at this time. Therefore I recommended further evaluation in the emergency department right away. We discussed going by ambulance versus POV patient declined ambulance and will go in her own car. - Differential Dx/Diagnosis Provider Diagnosis: Neck pain, Left shoulder pain, Chest pain, Palpitations Discharge - Sign-Out/Discharge Documenting (check all that apply): Patient Departure All imaging exams completed and their final reports reviewed: No Studies - Discharge Plan Condition: Stable Disposition: HOME-RECOMMEND TO ED Patient Education Materials: Chest Pain (ED), Heart Palpitations (ED), Shoulder Pain (ED), Acute Neck Pain (ED) Referrals: Layton Colbert MD [Primary Care Provider] - Additional Instructions: GO DIRECTLY TO THE EMERGENCY DEPARTMENT FOR FURTHER EVALUATION. - Billing Disposition and Condition Condition: STABLE Disposition: Home-Recommend to ED
== END 2018-08-13 17:30 | disposition home health service (06) ==
LOC: UCEAST 16:56
DX: M54.2 Cervicalgia (principal); M25.512 Pain in left shoulder; R07.9 Chest pain, unspecified; R00.2 Palpitations; Z88.0 Allergy status to penicillin; Z88.8 Allergy status to other drugs, medicaments and biological substances; Z88.1 Allergy status to other antibiotic agents; Z91.018 Allergy to other foods
CPT/HCPCS: 93005; 99212; G0463

== ENCOUNTER 2018-08-13 17:48 | Emergency (ER) | payer BC ==
[2018-08-13] MEDS ORDERED: Methocarbamol TAB* 500 MG PO ONE ×2 (18:14→20:01)
[2018-08-13] MEDS ORDERED: Dexamethasone IV* 4 MG/ML 1 ML (4 MG) IM ONE (18:14)
--- NOTE | 2018-08-13 18:39 | ED ---
Upper Extremity Pain - HPI Summary HPI Summary: 33 year old female presents with left sided shoulder pain today. She states that she slept wrong. States starts in her neck radiates down to her left shoulder. She denies any chest pain. She admits shortness of breath but states has history of asthma. She also admits to palpitations for the past 4 weeks. She was sent from urgent care for further workup. She denies any fevers. No cough. No nausea or vomiting. No bowel pain. has history of Mendoza sarcoma. Movement makes the pain worse. She tried some ibuprofen and Tylenol without relief. - History of Current Complaint Chief Complaint: EDSMichellej Stated Complaint: LT SHOULDER PAIN Time Seen by Provider: 08/13/18 18:05 Hx Last Menstrual Period: 03/12/18 - Allergies/Home Medications Allergies/Adverse Reactions: Allergies Allergy/AdvReac Type Severity Reaction Status Date / Time amoxicillin Allergy Severe Anaphylatic Verified 08/13/18 17:54 Shock cromolyn Allergy Severe Anaphylatic Verified 08/13/18 17:54 Shock ipratropium [From Combivent] Allergy Severe Difficulty Verified 08/13/18 17:54 Breathing vancomycin Allergy Severe Anaphylatic Verified 08/13/18 17:54 Shock cinnamon Allergy Unknown Hives Verified 08/13/18 17:54 lorazepam AdvReac Intermediate Agitation Verified 08/13/18 17:54 ondansetron [From Zofran] AdvReac Dizziness Verified 08/13/18 17:54 PMH/Surg Hx/FS Hx/Imm Hx Endocrine/Hematology History: Denies: Hx Anticoagulant Therapy, Hx Blood Disorders, Hx Diabetes, Hx Thyroid Disease, Hx Unexplained Bleeding Cardiovascular History: Denies: Hx Congestive Heart Failure, Hx Deep Vein Thrombosis, Hx Hypertension , Hx Myocardial Infarction, Hx Pacemaker/ICD Respiratory History: Reports: Hx Asthma, Other Respiratory Problems/Disorders - pneumonia x2 Denies: Hx Chronic Obstructive Pulmonary Disease (COPD), Hx Lung Cancer, Hx Pneumonia, Hx Pulmonary Embolism GI History: Reports: Other GI Disorders - hx colitis Denies: Hx Gall Bladder Disease, Hx Gastrointestinal Bleed, Hx Ulcer, Hx Urosepsis History: Reports: Other Problems/Disorders - hx frequent UTI's - none in 2 yrs Denies: Hx Kidney Stones, Hx Renal Disease Musculoskeletal History: Reports: Other Musculoskeletal History - back pain d/t chemo and radiation Sensory History: Reports: Hx Contacts or Glasses - both, will wear glasses DOS Opthamlomology History: Reports: Hx Contacts or Glasses - both, will wear glasses DOS Neurological History: Reports: Hx Migraine - occular, Other Neuro Impairments/ Disorders - Hx Saenz's Sarcoma-lumbar spine, had chemo and radiation Denies: Hx Dementia, Hx Seizures, Hx Transient Ischemic Attacks (TIA) Psychiatric History: Reports: Hx Anxiety, Hx Depression Denies: Hx Panic Disorder, Hx Schizophrenia - "optical and regular kind.", Hx Bipolar Disorder - Cancer History Cancer Type, Location and Year: CA in back [id number] Hx Chemotherapy: Yes - and radiation Hx Radiation Therapy: Yes - Surgical History Surgery Procedure, Year, and Place: back biopsy & bone marrow taken from bilateral hips 2001. powerport placed at same time as biopsy 2001. powerport removal 2003 - Hx Anesthesia Reactions: No Infectious Disease History: No Infectious Disease History: Reports: Hx Shingles, Hx Tuberculosis Denies: Hx Clostridium Difficile, Hx Hepatitis, Hx Human Immunodeficiency Virus (HIV), Hx of Known/Suspected MRSA, Hx Known/Suspected VRE, Hx Known/ Suspected VRSA, History Other Infectious Disease, Traveled Outside the [place] in Last 30 Days - Family History Known Family History: Positive: Cardiac Disease - Father, Other - [place]. CVA. Negative: Hypertension, Diabetes - Social History Alcohol Use: Rare Hx Substance Use: No Substance Use Type: Reports: None Hx Tobacco Use: No Smoking Status (MU): Never Smoked Tobacco Have You Smoked in the Last Year: No Review of Systems Negative: Fever Negative: Chest Pain Negative: Shortness Of Breath Positive: Myalgia - left shoulder pain All Other Systems Reviewed And Are Negative: Yes Physical Exam Triage Information Reviewed: Yes Vital Signs On Initial Exam: Initial Vitals Temp Pulse Resp BP Pulse Ox 97.8 F 82 18 135/96 100 08/13/18 17:49 08/13/18 17:49 08/13/18 17:49 08/13/18 17:49 08/13/18 17:49 Vital Signs Reviewed: Yes Appearance: Positive: Pain Distress Skin: Positive: Warm, Dry Head/Face: Positive: Normal Head/Face Inspection Eyes: Positive: Normal, Conjunctiva Clear ENT: Positive: Pharynx normal Respiratory/Lung Sounds: Positive: Clear to Auscultation, Breath Sounds Present Cardiovascular: Positive: Normal, RRR Musculoskeletal: Positive: Limited @ - left shoulder, Other - no midline tenderness neck, tenderness over left side of neck and left shoulder, good pulses, good boom boss strenght, capillary refill<2 secs Neurological: Positive: Normal Psychiatric: Positive: Normal Diagnostics - Vital Signs Vital Signs Temp Pulse Resp BP Pulse Ox 08/13/18 18:12 105 126/93 100 08/13/18 17:49 97.8 F 82 18 135/96 100 - Laboratory Result Diagrams: 08/13/18 18:45 08/13/18 18:45 Lab Statement: Any lab studies that have been ordered have been reviewed, and results considered in the medical decision making process. - Radiology shoulder Radiology Interpretation Completed By: ED Physician Summary of Radiographic Findings: no fracture - CT neck CT Interpretation Completed By: Radiologist Summary of CT Findings: IMPRESSION: No acute findings. - EKG No standard instances Cardiac Rate: NL EKG Rhythm: Sinus Rhythm EKG Comparison: No Significant Change Summary of EKG Findings: sinus rhythm Re-Evaluation - Re-Evaluation First Eval Re-Evaluation Time: 19:08 Change: Unchanged Comment: felt better and then worse again Second Eval Re-Evaluation Time: 20:13 Change: Improved Comment: pain better Course/Dx - Course Course Of Treatment: 33 year old female presents with left sided shoulder pain today. She states that she slept wrong. States starts in her neck radiates down to her left shoulder. She denies any chest pain. She admits shortness of breath but states has history of asthma. She also admits to palpitations for the past 4 weeks. She was sent from urgent care for further workup. She denies any fevers. No cough. No nausea or vomiting. No bowel pain. has history of Mendoza sarcoma. Movement makes the pain worse. She tried some ibuprofen and Tylenol without relief. On exam tenderness over left trapezius and deltoid. Full range of motion of the neck. Limited range of motion of the shoulder with pain. Neurovascular intact. Lungs clear to auscultation. ekg Sinus rhythm. CT normal. wbc normal. d-dimer normal. troponin normal. shoulder xray normal. patient in significant amount of pain. gave percocet, robaxin, and decadron and pain better. will discharge with such. told if no improvement follow up with ortho. patient understand and agrees with plan. - Diagnoses Differential Diagnosis/HQI/PQRI: Positive: Fracture (Closed), Strain, Sprain Provider Diagnoses: Left shoulder pain Discharge - Sign-Out/Discharge Documenting (check all that apply): Patient Departure - Discharge Plan Condition: Good Disposition: HOME Prescriptions: HYDROcodone/ACETAMIN 5-325 MG* [[place] 5-325 TAB*] 1 tab PO Q6H PRN #6 tab MDD 4 PRN Reason: Pain Methocarbamol TAB* [Robaxin 500 MG TAB*] 500 mg PO TID PRN #15 tab PRN Reason: Pain methylPREDNISolone [Medrol Dosepak 4 MG*] 4 mg PO .SEE [place] INSTRUCTION #1 packet Patient Education Materials: Shoulder Pain (ED) Referrals: Layton Colbert MD [Primary Care Provider] - Ghazal Burnett MD [Medical Doctor] - Additional Instructions: Follow directions on package for Medrol pack Take robaxin three times a day Use ibuprofen or Tylenol for pain every 6 hours, use norco for break through pain every 6 hours ice/heat area, move as much as possible Follow up with ortho if no improvement Return to ED if develop any new or worsening symptoms - Billing Disposition and Condition Condition: GOOD Disposition: Home
[2018-08-13 18:52] LABS: ABS Basophils 0 10^3/ul (0-0.2); ABS Eosinophils 0.2 10^3/ul (0-0.6); ABS Lymphocytes 2.4 10^3/ul (1.0-4.8); ABS Monocytes 0.5 10^3/ul (0-0.8); ABS Neutrophils 3.7 10^3/ul (1.5-7.7); ABS Nucleated RBC 0 10^3/ul; Eosinophil % 3.3 %; Hematocrit 40 % (35-47); Hemoglobin 13.1 g/dl (12.0-16.0); Lymphocyte % 34.7 %; Mean Corpuscular HGB Conc 33 g/dl (31-36); Mean Corpuscular Hemoglobin 28 pg (27-31); Mean Corpuscular Volume 85 fL (80-97); Mean Platelet Volume 7.1 fL (7.4-10.4); Nucleated Red Blood Cells % 0; Platelet Count 249 10^3/ul (150-450); Red Blood Count 4.66 10^6/ul (4.00-5.40); Red Cell Distribution Width 14 % (10.5-15); White Blood Count 6.9 10^3/ul (3.5-10.8)
[2018-08-13] MEDS ORDERED: oxyCODONE/Acetamin 5/325 MG* TAB PO ONE (19:09)
[2018-08-13 19:13] LABS: ALT 33 U/L (7-52); AST 27 U/L (13-39); Albumin 4.3 g/dL (3.2-5.2); Albumin/Globulin Ratio 1.9 (1-3); Alkaline Phosphatase 89 U/L (34-104); Anion Gap 8 mmol/L (2-11); BUN/Creatinine Ratio 18.2 (8-20); Blood Urea Nitrogen 20 mg/dL (6-24); CO2 Carbon Dioxide 25 mmol/L (22-32); Calcium 9.7 mg/dL (8.6-10.3); Chloride 105 mmol/L (101-111); EGFR Non-African American 56.9 (>60); Globulin 2.3 g/dL (2-4); Glucose 96 mg/dL (70-100); Potassium 3.9 mmol/L (3.5-5.0); Sodium 138 mmol/L (135-145); Total Protein 6.6 g/dL (6.4-8.9)
[2018-08-13 19:16] LABS: HCG Pregnancy < 0.60 mIU/mL
[2018-08-13 20:33] VITALS: BP 125/68
== END 2018-08-13 20:35 | disposition home or self-care (01) ==
LOC: ED 17:48
DX: M25.512 Pain in left shoulder (principal); X58.XXXA Exposure to other specified factors, initial encounter; Y92.9 Unspecified place or not applicable; J45.909 Unspecified asthma, uncomplicated; F32.9 Major depressive disorder, single episode, unspecified; F41.9 Anxiety disorder, unspecified; Z85.830 Personal history of malignant neoplasm of bone
CPT/HCPCS: 36415; 72125; 80053; 84484; 84702; 85025; 85379; 93005; 96372; 99283; A9270-GY; J1100

== ENCOUNTER → 2019-03-20 10:13 | Day surgery (SDC) | payer BC ==
[~2019-03-20 10:13] MED LIST changes: +ASA-APAP-CAFFEINE ES (NF) 1 TAB TAB PO PRN; +Acetaminophen TAB* 325 MG ONE; +Acetaminophen TAB* 325 MG PO PRN; +Albuterol HFA INHALER* 8 gm MDI INH PRN; -Buffered Lidocaine 0.9% SYRIN* 5 ML/SYR SYRINGE INTRADERM ONE; +Buffered Lidocaine 1% SYRIN* 1 ML/SYRINGE INTRADERM ONE; +Cetirizine* 10 MG TAB PO SCH; +DOXYcycline IV 200 MG in NS 250 mL *Pre-Op OBGYN IVPB ONE; -DOXYcycline IV* 100 MG in NS 0.9% 250 ML* 250 ML IVPB ONE; -DiMENhydriNATE IV* 50 MG/ML VIAL IV PUSH PRN; -EPHEDrine (Pressors)* 50 MG/ML VIAL ONE; -Famotidine IV* 10 MG/ML 2 ML (20 mg) IV ONE; -Famotidine IV* 10 MG/ML 2 ML (20 mg) ONE; +Famotidine TAB* 20 MG ONE; +Famotidine TAB* 20 MG PO ONE; +Fluticasone-Salmeterol 250-50* DISKUS INH SCH; -HYDROcodone/ACETAMIN 5-325 MG* 1 TAB PO PRN; +Ibuprofen TAB* 600 MG PO PRN; -Ketorolac INJ* 30 MG/ML 1 ML VIAL IV PRN; +Lactated Ringers 1000 ML Bag* 1,000 ML IV SCH; +Levalbuterol 0.63MG/3ML NEB* UNIT OF USE INH ONE; +Midazolam* 1 MG/ML 2 ML VIAL (2 MG) ONE; -Midazolam* 1 MG/ML 5 ML VIAL (5 MG) ONE; +Misoprostol TAB* 200 MCG ONE; +Mometasone NASAL (NF) SPRAY BOTH NARES PRN; +NON FORMULARY MED* (Melatonin [Melatonin] 10 MG) PO SCH; +Ondansetron INJ* 2 MG/ML VIAL IV PRN; +Ondansetron INJ* 2 MG/ML VIAL ONE; -PROCHLORPERAZINE INJ 5 MG/ML 2 ML VIAL ONE; +Propofol* 10 MG/ML 20 ML BTL ONE; -Propofol* 500 MG/50 ML BTL ONE; +Sertraline* 25 MG TAB PO SCH; +Succinylcholine* 20 MG/ML 10 ML VIAL ONE; +diPHENhydraMINE PO* 25 MG PO PRN
[2019-03-20 11:47] LABS: ABS Eosinophils 0.2 10^3/ul (0-0.6); ABS Lymphocytes 1.9 10^3/ul (1.0-4.8); ABS Monocytes 0.5 10^3/ul (0-0.8); ABS Neutrophils 5.5 10^3/ul (1.5-7.7); Eosinophil % 2.4 %; Hematocrit 40 % (35-47); Hemoglobin 13.1 g/dL (12.0-16.0); Lymphocyte % 22.9 %; Mean Corpuscular HGB Conc 33 g/dL (31-36); Mean Corpuscular Hemoglobin 27 pg (27-31); Mean Corpuscular Volume 83 fL (80-97); Mean Platelet Volume 7.3 fL (7.4-10.4); Platelet Count 235 10^3/uL (150-450); Red Blood Count 4.76 10^6 /uL (3.70-4.87); Red Cell Distribution Width 15 % (10-15); White Blood Count 8.1 10^3/uL (3.5-10.8)
--- NOTE | 2019-03-20 13:56 | OP ---
OPERATIVE REPORT: DATE OF OPERATION: 03/20/19 DATE OF : 83 SURGEON: Shantell Montero MD. ANESTHESIA: General endotracheal with paracervical block. PRE-OP DIAGNOSIS: Missed at 9 weeks. POST-OP DIAGNOSIS: Missed at 9 weeks. OPERATIVE PROCEDURE: Dilation, evacuation, and curettage. ESTIMATED BLOOD LOSS: 250 cc. URINE OUTPUT: 50 cc. FLUIDS: 700 cc of IV crystalloid. SPECIMENS: Intrauterine contents. FINDINGS: Revealed intrauterine contents consistent with products of conception , all 4 quadrants of the uterus with " cry of uterus", minimal bleeding noted. DISPOSITION: Stable to recovery room. DESCRIPTION OF PROCEDURE: The patient was placed in dorsal lithotomy position. Legs were placed in candy cane stirrups after undergoing general endotracheal anesthesia. The patient was prepped and draped in sterile standard fashion and identified with universal protocol for correct procedure, position, and patient. Self-cath was inserted for drainage of 50 cc of clear yellow urine. Self-cath was removed. Sterile speculum was inserted. Cervix was visualized, grasped on the anterior lip with a single-tooth tenaculum after 10 cc of paracervical block was applied. Cervix was then dilated to #10 Hegar dilator. There was some slippage on the anterior lip of the single-tooth tenaculum. It was hemostatic. The single- tooth tenaculum was replaced. Suction curettage was then performed without any difficulty. Sharp curettage was performed confirming removal of intrauterine contents in all 4 quadrants. Single-tooth tenaculum was removed. Hemostasis was noted. Sterile speculum was removed. 800 mcg of Cytotec was placed intravaginally. The patient was placed in dorsal lithotomy position, was extubated in a standard fashion and taken to recovery room in stable condition. [id number]/[facility] #: [id number] MTDD
[2019-03-20 14:37] VITALS: BP 104/73
== END | disposition home or self-care (01) ==
LOC: OR 10:13
PROVIDERS: ATTEND Obstetrics & Gynecology
DX: O02.1 Missed abortion (principal); J45.909 Unspecified asthma, uncomplicated; K21.9 Gastro-esophageal reflux disease without esophagitis; F41.8 Other specified anxiety disorders; C41.9 Malignant neoplasm of bone and articular cartilage, unspecified; Z85.830 Personal history of malignant neoplasm of bone
CPT/HCPCS: 36415; 85025; 86850; 86900; 86901; 88305; A9270-GY; J0330; J1100; J2250; J2405; J2704; J3010

== ENCOUNTER 2023-01-19 16:12 | Inpatient (IN) ==
[2023-01-19 18:03] LABS: ALT 25 U/L (7-52); AST 22 U/L (13-39); Albumin 4.2 g/dL (3.2-5.2); Albumin/Globulin Ratio 1.5 (1-3); Alkaline Phosphatase 98 U/L (35-149); Anion Gap 7 mmol/L (2-16); Blood Urea Nitrogen 12 mg/dL (6-24); CO2 Carbon Dioxide 21 mmol/L (22-32); Calcium 10.5 mg/dL (8.6-10.3); Chloride 108 mmol/L (101-111); Creatinine, Serum 1.14 mg/dL (0.51-0.95); Globulin 2.8 g/dL (2-4); Glucose 113 mg/dL (70-100); Potassium 3.6 mmol/L (3.5-5.0); Sodium 136 mmol/L (135-145); eGFR CKD-EPI 63.2 (>60)
[2023-01-19 18:10] LABS: ABS Eosinophils 0.1 10^3/uL (0.0-0.5); ABS Lymphocytes 1.8 10^3/uL (1.0-4.8); ABS Monocytes 0.7 10^3/uL (0.0-0.9); ABS Nucleated RBC 0.01 10^3/ul; Eosinophil % 1.4 %; Hematocrit 42.6 % (35-45); Hemoglobin 14.3 g/dL (11.5-14.3); Lymphocyte % 23.5 %; Mean Corpuscular Hemoglobin 27.6 pg (27-33); Mean Corpuscular Hgb Conc 33.5 g/dL (31-36); Mean Corpuscular Volume 82.2 fL (80-97); Mean Platelet Volume 7.2 fL (7.5-11.2); Nucleated Red Blood Cells % 0.1 /100 WBC (0.0-0.4); Platelet Count 264 10^3/uL (150-450); Red Blood Count 5.18 10^6/uL (3.63-4.92); Red Cell Distribution Width 15.2 % (12-17); White Blood Count 7.7 10^3/uL (3.8-11.8)
[2023-01-19 18:13] LABS: Urine Benzodiazepine Screen None Detected (None Detect); Urine Cannabinoids Screen None Detected (None Detect); Urine Opiates Screen None Detected (None Detect)
[2023-01-19 18:23] LABS: Acetaminophen < 15 mcg/mL; Alcohol, S < 13 mg/dL (<13); Salicylate < 2.50 mg/dL (<30)
[2023-01-20] MEDS ORDERED: Al Hydrox/Mg Hydrox/Simet LIQ 30 ML UDC PO PRN (00:05)
[2023-01-20] MEDS: Vitamin THERAPEUTIC TAB PO SCH (07:36)
[2023-01-20] MEDS: Fluticasone NASAL SPRAY 50MCG 16 gm SPRAY BTL BOTH NARES SCH (07:37)
[2023-01-20] MEDS: Mometasone/Formoter 200/5 MDI INH SCH ×2 (07:53→19:05)
[2023-01-20 09:11] LABS: HCG Pregnancy < 0.60 mIU/mL
[2023-01-21 08:38] LABS: HDL Cholesterol 49.1 mg/dL
[2023-01-21] MEDS: Mometasone/Formoter 200/5 MDI INH SCH ×2 (08:40→19:46)
[2023-01-21] MEDS: Fluticasone NASAL SPRAY 50MCG 16 gm SPRAY BTL BOTH NARES SCH (08:41)
[2023-01-21] MEDS: Vitamin THERAPEUTIC TAB PO SCH (08:41)
[2023-01-22] MEDS: Vitamin THERAPEUTIC TAB PO SCH (08:48)
[2023-01-22] MEDS: Mometasone/Formoter 200/5 MDI INH SCH ×2 (08:49→18:29)
[2023-01-22] MEDS: Fluticasone NASAL SPRAY 50MCG 16 gm SPRAY BTL BOTH NARES SCH (08:49)
[2023-01-22] MEDS: Albuterol HFA INHALER 8 gm MDI INH PRN (09:39)
[2023-01-23] MEDS: Vitamin THERAPEUTIC TAB PO SCH (07:37)
[2023-01-23] MEDS: Fluticasone NASAL SPRAY 50MCG 16 gm SPRAY BTL BOTH NARES SCH ×2 (09:17→10:14)
[2023-01-23] MEDS: Mometasone/Formoter 200/5 MDI INH SCH ×2 (10:06→20:46)
[2023-01-23] MEDS: Albuterol HFA INHALER 8 gm MDI INH PRN (10:10)
[2023-01-23] MEDS: Triamcinolone 0.5% OINT 1 TUBE TOPICAL PRN (10:15)
[2023-01-24] MEDS: Vitamin THERAPEUTIC TAB PO SCH (08:32)
[2023-01-24] MEDS: Triamcinolone 0.5% OINT 1 TUBE TOPICAL PRN (08:32)
[2023-01-24] MEDS: Fluticasone NASAL SPRAY 50MCG 16 gm SPRAY BTL BOTH NARES SCH (08:34)
[2023-01-24] MEDS: Mometasone/Formoter 200/5 MDI INH SCH ×2 (08:34→20:25)
[2023-01-25 08:16] VITALS: BP 142/78
[2023-01-25] MEDS: Vitamin THERAPEUTIC TAB PO SCH (08:17)
[2023-01-25] MEDS: Mometasone/Formoter 200/5 MDI INH SCH (08:18)
[2023-01-25] MEDS: Fluticasone NASAL SPRAY 50MCG 16 gm SPRAY BTL BOTH NARES SCH (09:48)
== END 2023-01-25 14:35 | disposition home or self-care (01) | DRG 751 ==
LOC: ED 16:12 → EDHOLD 23:59 → BSU 01-20 00:30
PROVIDERS: ADMIT Psychiatry & Neurology Psychiatry; ATTEND Psychiatry & Neurology Psychiatry

== ENCOUNTER 2024-02-12 20:46 | Observation (INO) ==
[2024-02-12] MEDS ORDERED: Buffered Lidocaine 1% SYRIN 1 ml INTRADERM ONE (21:47)
[2024-02-12] MEDS: Lactated Ringers 1000 ml BAG 1,000 ML IV ONE ×2 (22:35→23:42)
[2024-02-12 22:55] LABS: ABS Basophils 0.1 10^3/uL (0.0-0.1); ABS Eosinophils 0.1 10^3/uL (0.0-0.5); ABS Lymphocytes 1.9 10^3/uL (1.0-4.8); ABS Monocytes 0.8 10^3/uL (0.0-0.9); ABS Neutrophils 8.8 10^3/uL (1.5-7.6); ABS Nucleated RBC 0.01 10^3/ul; Hemoglobin 10.9 g/dL (11.5-14.3); Lymphocyte % 15.9 %; Mean Corpuscular Hemoglobin 27.7 pg (27-33); Mean Corpuscular Hgb Conc 32.2 g/dL (31-36); Mean Platelet Volume 9.4 fL (7.5-11.2); Nucleated Red Blood Cells % 0.1 %/100WBC (0.0-0.8); Platelet Count 233 10^3/uL (150-450); Red Blood Count 3.95 10^6/uL (3.63-4.92); Red Cell Distribution Width 14.9 % (12-17); White Blood Count 11.7 10^3/uL (3.8-11.8)
[2024-02-12 23:39] LABS: Urine Appearance Clear; Urine Bilirubin Negative (Negative); Urine Blood 3+ (Negative); Urine Color Light-Yellow; Urine Glucose Negative (Negative); Urine Ketones Negative (Negative); Urine Nitrite Negative (Negative); Urine Protein Trace (Negative); Urine Specific Gravity 1.016 (1.002-1.030); Urine Urobilinogen Negative (Negative); Urine pH 6.5 (5.0-8.0)
[2024-02-12 23:40] LABS: Albumin 3.4 g/dL (3.2-5.2); Albumin/Globulin Ratio 1.3 (1-3); Calcium 11.6 mg/dL (8.6-10.3); Creatinine, Serum 1.09 mg/dL (0.51-0.95); Globulin 2.7 g/dL (2-4); Potassium 4.6 mmol/L (3.5-5.0); Total Bilirubin 0.3 mg/dL (0.2-1.0); Total Protein 6.1 g/dL (6.4-8.9); eGFR CKD-EPI 66.3 (>60)
[2024-02-12] MEDS: Betamethasone 6 mg/ml 5 ml VIAL IM SCH (23:40)
[2024-02-12] MEDS ORDERED: Lactated Ringers 1000 ml BAG 1,000 ML IV SCH (23:45)
[2024-02-13 00:10] LABS: Urine Bacteria Absent /HPF (Absent); Urine Red Blood Cell 3+(>10/hpf) /HPF (0-Trace); Urine Squamous Epithelial Cell Present /HPF (Absent); Urine White Blood Cell Trace(0-5/hpf) /HPF (0-Trace)
[2024-02-13 02:22] LABS: Urine Benzodiazepine Screen None Detected (None Detect); Urine Cannabinoids Screen None Detected (None Detect); Urine Opiates Screen None Detected (None Detect)
[2024-02-13] MEDS: Lactated Ringers 1000 ml BAG 1,000 ML IV SCH (06:05)
[2024-02-13 12:43] LABS: Chlamydia trachomatis NAA Negative (Negative); Neisseria gonorrhoeae (GC) NAA Negative (Negative)
[2024-02-13] MEDS: Sulfur Hexaflouride MICROSPHR 25 MG VIAL IV ONE (15:03)
== END 2024-02-14 09:00 | disposition home or self-care (01) ==
LOC: MCHOBOUT 20:46 → MCHOB 21:49 → INTOOBSV 21:49
PROVIDERS: ADMIT Obstetrics & Gynecology; ATTEND Obstetrics & Gynecology

== ENCOUNTER 2024-02-14 21:47 | Inpatient (IN) ==
[2024-02-14] MEDS ORDERED: Prochlorperazine 5 mg/ml 2 ml VIAL (10 mg) IV PRN (23:40)
[2024-02-14] MEDS ORDERED: Lidocaine 1% VIAL 10 MG/ML 30 ML VIAL INJ PRN (23:40)
[2024-02-15] MEDS: Lactated Ringers 1000 ml BAG 1,000 ML IV SCH (01:51)
[2024-02-15] MEDS: Ampicillin ADVAN 2 GM in NS 0.9% 100 ml BAG 100 ML IVPB SCH (01:51)
[2024-02-15 01:52] LABS: Hemoglobin 9.9 g/dL (11.5-14.3); Mean Corpuscular Hemoglobin 27.7 pg (27-33); Mean Corpuscular Volume 86.5 fL (80-97); Mean Platelet Volume 9.7 fL (7.5-11.2); Platelet Count 246 10^3/uL (150-450); Red Blood Count 3.58 10^6/uL (3.63-4.92); White Blood Count 13.8 10^3/uL (3.8-11.8)
[2024-02-15 02:08] LABS: Urine Creatinine Concentration 108.17 mg/dL (20.00-320.00); Urine TP Creat Ratio 0.39 mg/mg
[2024-02-15 02:30] LABS: Uric Acid 7.4 mg/dL (2.3-6.6)
[2024-02-15 03:06] LABS: Urine Appearance Clear; Urine Bilirubin Negative (Negative); Urine Blood 1+ (Negative); Urine Color Light-Yellow; Urine Glucose Negative (Negative); Urine Ketones Negative (Negative); Urine Nitrite Negative (Negative); Urine Protein Trace (Negative); Urine Specific Gravity 1.017 (1.002-1.030); Urine Urobilinogen Negative (Negative); Urine pH 6.5 (5.0-8.0)
[2024-02-15 03:20] LABS: Urine Bacteria 1+ /HPF (Absent); Urine Red Blood Cell 3+(>10/hpf) /HPF (0-Trace); Urine Squamous Epithelial Cell Present /HPF (Absent); Urine White Blood Cell Trace(0-5/hpf) /HPF (0-Trace)
[2024-02-15 04:00] LABS: ABS Lymphocytes 2.2 10^3/uL (1.0-4.8); ABS Monocytes 1.2 10^3/uL (0.0-0.9); ABS Neutrophils 10.4 10^3/uL (1.5-7.6); ABS Nucleated RBC 0.11 10^3/ul; Anisocytosis 1+; Eosinophil % 0.1 %; Lymphocyte % 15.8 %; Nucleated Red Blood Cells % 0.8 %/100WBC (0.0-0.8); Polychromasia 1+
[2024-02-15] MEDS ORDERED: Albuterol HFA INHALER 8 gm MDI INH PRN (07:50)
[2024-02-15] MEDS ORDERED: OMEGA PO SCH (09:00)
[2024-02-15] MEDS ORDERED: AMPHETAMINE PO SCH (09:00)
[2024-02-15] MEDS ORDERED: DEXTROAM PO SCH (09:00)
[2024-02-15 10:14] LABS: Creatinine, Serum 1.04 mg/dL (0.51-0.95); eGFR CKD-EPI 70.1 (>60)
[2024-02-15] MEDS: Mometasone/Formoter 200/5 MDI INH SCH (10:30)
[2024-02-16 07:29] LABS: Hematocrit 31.5 % (35-45); Hemoglobin 10.1 g/dL (11.5-14.3); Mean Corpuscular Hemoglobin 27.9 pg (27-33); Mean Corpuscular Hgb Conc 32.2 g/dL (31-36); Mean Corpuscular Volume 86.7 fL (80-97); Mean Platelet Volume 9.5 fL (7.5-11.2); Platelet Count 223 10^3/uL (150-450); Red Blood Count 3.63 10^6/uL (3.63-4.92); Red Cell Distribution Width 15.3 % (12-17); White Blood Count 11.3 10^3/uL (3.8-11.8)
[2024-02-16 07:55] LABS: Albumin 3.2 g/dL (3.2-5.2); Albumin/Globulin Ratio 1.2 (1-3); Calcium 10.5 mg/dL (8.6-10.3); Creatinine, Serum 1.01 mg/dL (0.51-0.95); Globulin 2.7 g/dL (2-4); Potassium 4.1 mmol/L (3.5-5.0); Total Bilirubin 0.2 mg/dL (0.2-1.0); Total Protein 5.9 g/dL (6.4-8.9); eGFR CKD-EPI 72.6 (>60)
[2024-02-16 08:10] LABS: ABS Neutrophils 8.2 10^3/uL (1.5-7.6); ABS Nucleated RBC 0.07 10^3/ul; Eosinophil % 0.4 %; Lymphocyte % 17.3 %; Nucleated Red Blood Cells % 0.6 %/100WBC (0.0-0.8); Polychromasia 1+
[2024-02-16] MEDS: Ampicillin ADVAN 2 GM in NS 0.9% 100 ml BAG 100 ML IVPB SCH (14:53)
[2024-02-16] MEDS: Lactated Ringers 1000 ml BAG 1,000 ML IV ONE (15:37)
[2024-02-16] MEDS ORDERED: Sodium Citrate/Citric Acid LIQ 15 ML UDC ONE (18:32)
[2024-02-16] MEDS ORDERED: Oxytocin 10 UNITS/ML 1 ML VIAL ONE ×2 (18:32→19:48)
[2024-02-16] MEDS ORDERED: Phenylephrine IV 10 MG/ML 1 ml VIAL ONE (18:32)
[2024-02-16] MEDS ORDERED: Dexamethasone IV 4 MG/ML VIAL 1 ml VIAL ONE (18:32)
[2024-02-16] MEDS ORDERED: Ondansetron 4 mg VIAL 2 MG/ML 2 ml VIAL ONE (18:32)
[2024-02-16] MEDS ORDERED: Morphine PF AMP (0.5MG/ML) 5 MG/10 ML AMP ONE (18:32)
[2024-02-16] MEDS ORDERED: Propofol 10 MG/ML 20 ML BTL ONE (20:00)
[2024-02-16] MEDS ORDERED: Lidocaine 2% PF 10 ML AMP (OR) ONE (20:00)
[2024-02-16 20:26] LABS: Urine Appearance Clear; Urine Bilirubin Negative (Negative); Urine Blood Trace (Negative); Urine Color Colorless; Urine Glucose Negative (Negative); Urine Ketones Negative (Negative); Urine Nitrite Negative (Negative); Urine Protein Negative (Negative); Urine Specific Gravity 1.008 (1.002-1.030); Urine Urobilinogen Negative (Negative)
[2024-02-16] MEDS ORDERED: fentaNYL 100 mcg/2 ml 50 MCG/ML VIAL ONE (20:26)
[2024-02-16] MEDS ORDERED: Glycopyrrolate IV 0.2 MG/ML 1 ML VIAL ONE (20:31)
[2024-02-16] MEDS ORDERED: Measles, Mumps,Rubella VACC 0.5 ML/VIAL SUBCUT ONE (20:49)
[2024-02-16] MEDS ORDERED: Witch Hazel PAD JAR TOPICAL PRN (20:49)
[2024-02-16] MEDS ORDERED: Lactated Ringers 1000 ml BAG 1,000 ML IV SCH (21:00)
[2024-02-16] MEDS ORDERED: Naloxone 0.4 mg VIAL 0.4 mg/ml 1 ml VIAL IV PUSH PRN (22:48)
[2024-02-16] MEDS: ceFOXitin 2 GM IVPREMIX 2 GM/50 ML BAG IVPB ONE (23:34)
[2024-02-16] MEDS: ceFOXitin 2 GM IVPREMIX 2 GM/50 ML BAG ONE (23:34)
[2024-02-16] MEDS: Acetaminophen IV 1 GM/100ML 1,000 MG/100 ML BAG IV ONE (23:53)
[2024-02-17 07:36] LABS: ABS Lymphocytes 1.5 10^3/uL (1.0-4.8); ABS Monocytes 1.4 10^3/uL (0.0-0.9); ABS Neutrophils 13.7 10^3/uL (1.5-7.6); ABS Nucleated RBC 0.02 10^3/ul; Hematocrit 24.5 % (35-45); Hemoglobin 8.2 g/dL (11.5-14.3); Lymphocyte % 9.1 %; Mean Corpuscular Hemoglobin 28.6 pg (27-33); Mean Corpuscular Hgb Conc 33.3 g/dL (31-36); Mean Corpuscular Volume 85.8 fL (80-97); Mean Platelet Volume 9.1 fL (7.5-11.2); Nucleated Red Blood Cells % 0.1 %/100WBC (0.0-0.8); Platelet Count 184 10^3/uL (150-450); Red Blood Count 2.86 10^6/uL (3.63-4.92); White Blood Count 16.7 10^3/uL (3.8-11.8)
[2024-02-17 08:03] LABS: Albumin 2.6 g/dL (3.2-5.2); Albumin/Globulin Ratio 1.3 (1-3); Calcium 9.9 mg/dL (8.6-10.3); Creatinine, Serum 0.94 mg/dL (0.51-0.95); Total Bilirubin 0.2 mg/dL (0.2-1.0); Total Protein 4.6 g/dL (6.4-8.9); eGFR CKD-EPI 79.2 (>60)
[2024-02-17] MEDS: Measles, Mumps,Rubella VACC 0.5 ML/VIAL SUBCUT ONE (20:42)
[2024-02-18 08:39] LABS: Hematocrit 27.3 % (35-45); Hemoglobin 8.8 g/dL (11.5-14.3); Mean Corpuscular Hemoglobin 27.9 pg (27-33); Mean Corpuscular Hgb Conc 32.2 g/dL (31-36); Mean Corpuscular Volume 86.6 fL (80-97); Mean Platelet Volume 9.2 fL (7.5-11.2); Platelet Count 198 10^3/uL (150-450); Red Blood Count 3.15 10^6/uL (3.63-4.92); Red Cell Distribution Width 15.2 % (12-17)
[2024-02-18 09:03] LABS: Albumin 2.9 g/dL (3.2-5.2); Albumin/Globulin Ratio 1.3 (1-3); Creatinine, Serum 1.03 mg/dL (0.51-0.95); Globulin 2.3 g/dL (2-4); Potassium 4.7 mmol/L (3.5-5.0); Total Bilirubin 0.2 mg/dL (0.2-1.0); Total Protein 5.2 g/dL (6.4-8.9); eGFR CKD-EPI 70.9 (>60)
[2024-02-18 09:07] LABS: ABS Eosinophils 0.1 10^3/uL (0.0-0.5); ABS Lymphocytes 2.1 10^3/uL (1.0-4.8); ABS Monocytes 0.7 10^3/uL (0.0-0.9); ABS Neutrophils 7.1 10^3/uL (1.5-7.6); ABS Nucleated RBC 0.02 10^3/ul; Eosinophil % 0.8 %; Lymphocyte % 20.7 %; Nucleated Red Blood Cells % 0.2 %/100WBC (0.0-0.8)
[2024-02-18] MEDS: Glycerin ADULT 2.4 gm SUPP PR PRN (20:10)
[2024-02-19] MEDS: Oxytocin in LR 20,000 MILLI.UNIT/1,000 ML BAG IV SCH (07:12)
[2024-02-19] MEDS: MAGNESIUM 200 MG PO SCH (07:18)
[2024-02-19] MEDS: Buffered Lidocaine 1% SYRIN 1 ml INTRADERM ONE (07:18)
[2024-02-19 09:16] VITALS: BP 130/66
[2024-02-19 12:10] LABS: Albumin 2.9 g/dL (3.2-5.2); Albumin/Globulin Ratio 1.4 (1-3); Calcium 9.9 mg/dL (8.6-10.3); Creatinine, Serum 1.12 mg/dL (0.51-0.95); Globulin 2.1 g/dL (2-4); Potassium 4.3 mmol/L (3.5-5.0); Total Bilirubin 0.2 mg/dL (0.2-1.0); eGFR CKD-EPI 64.1 (>60)
== END 2024-02-19 16:55 | disposition home or self-care (01) | DRG 540 ==
LOC: MCHOBOUT 21:47 → MCHOB 23:45
PROVIDERS: ADMIT Obstetrics & Gynecology; ATTEND Obstetrics & Gynecology